=== PATIENT | male | born 1970 | race Caucasian/White ===

== ENCOUNTER 2023-09-13 09:46 | Outpatient (AMB) | payer OTHER, SELFPAY ==
--- NOTE | 2023-09-13 09:57 | A.SPINEOV_ITS ---
Intake Intake Visit Reasons: radiculopathy, lumbar region Intake Note: Mr. Ireland is here today c/o low back pain that radiates down left leg Assembly Worker Required: No Allergies No Known Allergies Allergy (Verified 09/13/23 09:58) Assessment & Plan Assessment & Plan (1) Back pain of lumbar region with sciatica: Code(s): M54.40 - Lumbago with sciatica, unspecified side Plan Dear Juan, Thank you for referring Mr Ireland to our office today. This is a very nice 52-year-old gentleman who presents to the office today for evaluation of 2 years of chronic low back pain going down his left leg into his lateral thigh, back of his leg as well as into his medial calf anteriorly. He also reports the symptoms will go down to his foot. He can not tell if it is the top of the bottom of his whole foot. The stent some start when he gets up in the morning and will progressively get worse this is a day goes on. He does have a claudicating element, but if he sits for too long his back pain will also get aggravated. He takes ibuprofen and oxycodone and this does seem to help. Tried physical therapy without any relief. He underwent an L5-S1 epidural at your office and that did give him about a week of some relief but not complete. He ultimately underwent bilateral L4 TFE any did have an excellent response to this with almost complete relief of his symptoms. Unfortunately the symptoms did return. He comes today to see us with an MRI showing degenerative disc disease and narrowing of the lateral recess at L3-4 and L4-5 as well as foraminal stenosis. PMH: He is morbidly obese, is a history of hypertension, anxiety, umbilical and inguinal hernia which may need surgery. History of obstructive sleep apnea, morbid obesity, rotator cuff tear, right knee arthroscopy twice. Denies any history of heart attack, stroke, lung issues, previous abdominal surgery, previous spine surgery, bleeding disorders, kidney issues. Social hx: He does not smoke, denies any drinking or recreational drug use Medications: Ibuprofen, amlodipine, oxycodone, sertraline, losartan Allergies: None Physical exam: He awake alert oriented no acute distress, very large abdomen central obesity, he has full strength of bilateral lower extremities with normal reflexes Imaging review: There is a lumbar MRI done at [facility], I do not have the images but only the report this suggests that there is some crowding of the lateral recess at L3-4 as well as L4-5, and bilateral neural foraminal narrowing at L4. Impression: 52-year-old gentleman presents to the office today for evaluation of 2 years of chronic and worsening low back pain radiating down his left leg into his thigh laterally, but also goes into his posterior thigh as well as some medial anterior tibial pain. The symptoms are aggravated with standing and walking and can get better if he sits down. However if he sits too long the back pain will become aggravated. He is trialed conservative treatment at this point in his very frustrated with his progress. It sounds like based on the MRI report that he has degenerative disc disease as well as foraminal narrowing possibly 2 levels. Unfortunately I was unable to access his images remotely from the computer so he is going to get me a copy of his disc and then I will call him to discuss the results. Thank you for allowing us to care for your patient. The total time spent with this visit with this patient was 45 minutes reviewing history, physical exam, lumbar MRI report review, and implementation of treatment plan or further diagnostic testing Kendall Mendez MD,PhD [facility] Coding Level of Care Code New Pt Level 4 (98093) Diagnoses Back pain of lumbar region with sciatica M54.40
== END 2023-09-13 10:18 | disposition home or self-care (01) ==
PROVIDERS: PCP Internal Medicine; Referring Provider Physician Assistant; Visit Provider Physician Assistant
DX: M54.40 Lumbago with sciatica, unspecified side (principal)
CPT/HCPCS: 99204

== ENCOUNTER → 2023-09-13 09:46 | Outpatient (BNVA) | payer OTHER, SELFPAY | PROVIDERS: PCP Internal Medicine; Visit Provider Physician Assistant | DX: M54.40 Lumbago with sciatica, unspecified side (principal) | CPT/HCPCS: 99202 ==

== ENCOUNTER 2024-08-04 11:06 | Outpatient (REF) | payer OTHER, SELFPAY ==
--- OUTSIDE RECORDS SUMMARY | 2024-08-04 14:34 | XMS_ITS | Clinical Summary ---
Author Organization [facility] Address [address] [place] [address] Care Team Providers Care Loader Semiconductor Dies Name Role Phone Unknown Primary Care Provider [phone] Allergies No known active allergies Social History [...] age to complete this topic Care Teams Loader Semiconductor Dies Relationship Specialty Start Date End Date Unknown Unknow Provider Address PCP - General 05/24/18
--- OUTSIDE RECORDS SUMMARY | 2024-08-04 14:34 | XMS_ITS | Encounter Summary ---
Author Organization [facility] Address [address] [place] [address] Care Team Providers Care Hand Sewer Shoes Name Role Phone Antony Hassan MD Primary Care Provider [phone] Reason for Visit * Reason Onset Date Comments Mo: Fax HERMES 07/31/2024 Encounter Details Date Type Department Care Team (Late st Contact Info) Description 07/31/2024 Telephone Internal Medicine - [place] [address] [facility] [address] [place] [phone] Antony Hassan MD [address] [facility] [address] [place] [address] [place] [address] Mo: Fax HERMES Social History Tobacco Use [...] of this encounter Progress Notes * Chin Edwrads MA - 08/03/2024 9:51 AM EST Last office notes and most recent labs faxed to [facility] as requested. * Madai Aponte - 07/31/2024 [...] AM EDT Office Visit General Surgery - [place] 175 [facility] [address] [place] [address] Morgan Chance, DO 175 [facility] [address] [place] [address] documented as of this encounter Visit Diagnoses Not on filedocumented in this encounter Care Teams Hand Sewer Shoes Relationship Specialty Start Date End Date Antony Hassan MD 175 [facility] [address] [place] [address] PCP - General 10/29/22 documented as of this encounter
--- OUTSIDE RECORDS SUMMARY | 2024-08-04 14:34 | XMS_ITS | Encounter Summary ---
Author Organization [facility], Address [address] [place] [address] Phone Care Team Providers Care Metalizing Machine Operator Name Role Phone Antony Hassan MD Primary Care Provider [phone] Encounter Details Date Type Department Care Team (Late st Contact Info) Description 10/04/2022 Documentation Only [facility], [address] [facility] [place] [address] Antony Hassan MD [address] [place] [address] Social History Tobacco Use Types Packs/Day Years [...] on filedocumented in this encounter Care Teams Metalizing Machine Operator Relationship Specialty Start Date End Date Antony Hassan MD 175 [facility] [address] [place] [address] PCP - General Internal Medicine 10/04/22 documented as of this encounter
--- OUTSIDE RECORDS SUMMARY | 2024-08-04 14:35 | XMS_ITS | Clinical Summary ---
Author Organization [facility], Address [address] [place] [address] [place] [address] Phone Care Team Providers Care Lean Process Deployment Consultant Name Role Phone Antony Hassan MD Primary Care Provider [phone] Active Problems Problem Noted Date Diagnosed Date [...] 2018 Influenza Vaccine (#1) 2024 03/28/2020 Insurance [facility] [employer] Care Teams Lean Process Deployment Consultant Relationship Specialty Start Date End Date Antony Hassan MD [address] [address] PCP - General Internal Medicine 10/04/22
--- OUTSIDE RECORDS SUMMARY | 2024-08-04 14:35 | XMS_ITS | Clinical Summary ---
Author Organization 175 [facility] Address [address] [place] [address] Phone Care Team Providers Care Vessel Liner Name Role Phone Antony Hassan MD Primary Care Provider [phone] Allergies No known active allergies Medications oxyCODONE [...] Team Description 07/31/2024 Telephone Internal Medicine - [address] [place] [address] Antony Hassan MD Joseph: Fax HERMES 07/16/2024 3:30 PM EST Office Visit Internal Medicine [address] [place] [phone] Antony Hassan MD Primary hypertension (Primary Dx); Screening for colon cancer; Anxiety 07/13/2024 Telephone Internal Medicine [address] [place] [address] Antony Hassan MD 07/08/2024 Telephone Internal [address] [address] Antony Hassan MD Form:Disability Placard 07/08/2024 [place] [facility] [address] [address] Antony Hassan MD Joseph:Refill from Last 3 Months Immunizations Name Administration Dates Next Due Pfizer SARS-CoV-2 COVID-19, mRNA, LNP-S, preservative free 05/20/2021 Surgical History Surgery Date Site/Laterality Comments SHOULDER ARTHROSCOPY 11/30/2021 Left PROCEDURE: CT SURGICAL ARTHROSCOPY SHOULDER W/LSS&RESCJ ADS; COMMENT: Patient underwent left rotator cuff repair with augmentation and labral debridement with Dr. Brennan OTHER SURGICAL HISTORY 07/25/2023 Right PROCEDURE: CT ARTHRS KNE SURG W/MENISCECTOMY MED/LAT W/SHVG; COMMENT: PMM, partial synovectomy HERNIA REPAIR PROCEDURE: CT REPAIR FIRST ABDOMINAL WALL HERNIA Medical History [...] AM EDT Office Visit General Surgery - [place] [address] [facility] [address] [place] [phone] Morgan Chance, [address] [place] [address] Health Maintenance Due Date Last Done Comments [...] Annual BMP Blood Test (12/31/2023) Pathologist [facility] Annual BMP Blood Test abstracted Historical Provider HEALTH MAINTENANCE Final Result * (ABNORMAL) Lipid panel (12/31/2023) [facility] LDL/HDL Ratio 3 0 - 4 Triglycerides 67 0 - 150 mg/dL Cholesterol 230(A) 0 - 200 mg/dL HDL 78 >=40 mg/dL LDL Cholesterol 139(A) 0 - 100 mg/dL Blood Venous blood specimen / Unknown us Historical Provider LAB BLOOD ORDERABLES Ofelia l Result * Depression Screening (12/06/2023) Pathologist [facility] Depression Screening abstracted Historical Provider HEALTH MAINTENANCE Final Result * COLONOSCOPY (04/06/2020 10:54 AM EDT) Anatomical Region Laterality Modality Endoscopy Jareth Gomez DO GI~PROCEDURE ORDERABLES Ofelia l Result from Last 3 Months or Most Recently Relevant to Health Maintenance Insurance [facility] MEDICARE MEDICAID - [place] Care Teams Vessel Liner Relationship Specialty Start Date End Date Antony Hassan MD [address] [place] [address] PCP - General 10/29/22
--- OUTSIDE RECORDS SUMMARY | 2024-08-04 14:35 | XMS_ITS | Clinical Summary ---
Author Organization [facility] Address [address] [place] [address] Care Team Providers Care Batch Heat Treat Operator Name Role Phone Alverto Astudillo MD Primary Care Provider [phone] Alverto Astudillo MD Unavailable [phone] Medications Escitalopram Oxalate (LEXAPRO) 10 MG tablet [...] age to complete this topic Care Teams Batch Heat Treat Operator Relationship Specialty Start Date End Date Alverto Astudillo MD [address] [place] [address] [address] [place] [address] PCP - General 01/14/23 Alverto Astudillo MD [address] [place] [address] [address] [place] [address] PCP - Backup PCP Internal Medicine 07/11/23
--- OUTSIDE RECORDS SUMMARY | 2024-08-04 14:35 | XMS_ITS | Encounter Summary ---
Author Organization [facility] Address [address] [place] [address] Care Team Providers Care Assessment Nurse Name Role Phone Antony Hassan MD Primary Care Provider [phone] Encounter Details Date Type Department Care Team (Late Contact Info) Description 07/13/2024 Telephone Internal Medicine - [place] 175 [facility] 200 [place] [phone] Antony Hassan MD 175 [facility] 200 [place] [address] Social History Tobacco Use Types Packs/Day Years [...] AM EDT Office Visit General Surgery - [place] 175 [facility] 110 [place] [phone] Morgan Chance, 175 [facility] 110 [place] [address] documented as of this encounter Visit Diagnoses Not on filedocumented in this encounter Care Teams Assessment Nurse Relationship Specialty Start Date End Date Antony Hassan MD [address] [address] PCP - General 10/29/22 documented as of this encounter
--- OUTSIDE RECORDS SUMMARY | 2024-08-04 14:35 | XMS_ITS | Encounter Summary ---
Author Organization [facility] Address [address] [place] [address] Care Team Providers Care Photoengraver Apprentice Name Role Phone Antony Hassan MD Primary Care Provider [phone] Reason for Referral * Consultation (Routine) - Authorized Specialty Diagnoses / Procedures Referred By Contridge t Referred To Contact Nephrology Diagnoses Screening for colon cancer Primary hypertension Anxiety Antony Hassan MD 175 [facility] 200 [place] [address] Phone: tel: fax: Bruce Alegre MD [address] [facility] 110 [place] [address] Phone: tel: fax: Referral ID Status Reason Start Date Expiration Date Visits Requested Visits Authorized [id number] Authorized Specialty Services Required 07/16/2024 07/16/2025 1 1 * Consultation (Routine) - Closed Specialty Diagnoses / Procedures Referred By Contac t Referred To Contact Gastroenterology Diagnoses Screening for colon cancer Primary hypertension Anxiety Antony Hassan MD 175 [facility] 200 [place] [address] Phone: tel: fax: Gastroenterology - [address] [facility] [address] [place] [address] Phone: tel: fax: Referral ID Status Reason Start Date Expiration Date V isits Requested Visits Authorized [id number] Closed Specialty Services Required 07/16/2024 07/16/2025 1 0 Reason for Visit * Reason Comments Follow-up Referral Encounter Details Date Type Department Care Team (Late st Contact Info) Description 07/16/2024 3:30 PM EST Office Visit Internal Medicine - [place] 175 [facility] [address] [place] [phone] Antony Hassan MD 175 [facility] [address] [place] [address] Primary hypertension (Primary Dx); Screening for colon [...] losartan and Bystolic for hypertension .refer to scientific associate. Also referred to GI for screening colonoscopy. documented in this encounter Plan of Treatment Upcoming Encounters Date Type Department Care Team (Late st Contact Info) Description 10/13/2024 8:30 AM EDT Office Visit General Surgery [facility] [address] [facility] [address] [facility] 110 [place] [address] Morgan Chance, [address] [facility] [address] [facility] 110 [place] [address] Scheduled Referrals Name Type Priority Associated Diagnoses [...] unspecified documented in this encounter Care Teams Photoengraver Apprentice Relationship Specialty Start Date End Date Antony aHssan MD 175 [facility] 200 [place] [address] PCP - General 10/29/22 documented as of this encounter
--- OUTSIDE RECORDS SUMMARY | 2024-08-04 14:35 | XMS_ITS | Clinical Summary ---
Author Organization [facility] Address [address] [place] [address] Care Team Providers Care Educational Guidance Counselor Name Role Phone Blair Baez MD Primary [...] age to complete this topic Care Teams Educational Guidance Counselor Relationship Specialty Start Date End Date Blair Baez MD PCP - General Family Medicine 09/03/17
--- OUTSIDE RECORDS SUMMARY | 2024-08-04 14:35 | XMS_ITS | Encounter Summary ---
Author Organization [facility] Address [address] [place] [address] Care Team Providers Care Bull Bucker Name Role Phone Antony Hassan MD Primary Care Provider [phone] Reason for Visit * Reason Onset Date Comments Form:Disability Placard 07/08/2024 Encounter Details Date Type Department Care Team (Late st Contact Info) Description 07/08/2024 Telephone Internal Medicine - [place] [address] [facility] [address] [place] [phone] Antony Hassan MD [address] [facility] [address] [place] [address] Form:Disability Placyossi Social History Tobacco Use Types [...] EST Mailed to Medical Affairs. [address] [address] [place] [address] * Yoko Aguilar MA - 07/16/2024 3:13 PM EST Placed in providers folder for signature. * Brissa Hart - 07/16/2024 2:44 PM EST PT Resubmitted Form Correctly Filled * Brissa Hart - 07/13/2024 1:23 PM EST PT notified that front of form needs to be filled out prior to doctors signature. PT was called and notified. Placed inside TV TECHNICIAN Box * Brissa Hart - 07/08/2024 11:44 AM EST Disabled Parking Max TV TECHNICIAN: [phone] Vehicle: Driven Only By PT Medical Condition: Limited Mobility Due To Right Knee Surgery documented in this encounter Plan of Treatment Upcoming Encounters Date Type Department Care Team (Late st Contact Info) Description 10/13/2024 8:30 AM EDT Office Visit General Surgery - [place] 175 [facility] 110 [place] [phone] Morgan Chance, [address] [facility] [address] [facility] 110 [place] [address] documented as of this encounter Visit Diagnoses Not on filedocumented in this encounter Care Teams Bull Bucker Relationship Specialty Start Date End Date Antony Hassan MD [address] [facility] [address] [place] [address] PCP - General 10/29/22 documented as of this encounter
--- OUTSIDE RECORDS SUMMARY | 2024-08-04 14:35 | XMS_ITS | Encounter Summary ---
Author Organization [facility] Address [address] [place] [address] Care Team Providers Care Milk Driver Name Role Phone Antony Hassan MD Primary Care Provider [phone] Reason for Visit * Reason Onset Date Comments Mo:Refill 07/08/2024 Encounter Details Date Type Department Care Team ([facility] st Contact Info) Description 07/08/2024 Telephone Internal Medicine - [place] [address] [facility] [address] [place] [phone] Antony Hassan MD [address] [facility] [address] [place] [address] Mo:Refill Social History Tobacco Use Types Packs/Day [...] AM EDT Office Visit General Surgery - [place] 175 [facility] 110 [place] [address] Morgan Chance DO 175 [facility] 110 [place] [address] documented as of this encounter Visit Diagnoses [...] documented as of this encounter Care Teams Milk Driver Relationship Specialty Start Date End Date Antony Hassan MD 175 [facility] 200 [place] [address] PCP - General 10/29/22 documented as of this encounter
[2024-08-04 18:32] LABS: Protein/Creatinine Ratio, Ur 0.23 (<0.2); Total Protein Urine Random 47 mg/dL (<12)
[2024-08-04 18:35] LABS: Anion Gap 13 (12-20); Blood Urea Nitrogen 10 mg/dL (9-16); Calcium 9.2 mg/dL (8.4-10.2); Carbon Dioxide 26 mmol/L (22-29); Chloride 101 mmol/L (96-108); Estimated Glomerular Filt Rate > 60; Potassium 3.2 mmol/L (3.3-5.1); Sodium 137 mmol/L (135-145)
[2024-08-04 18:45] LABS: TSH reflex Free T4 1.77 uIU/mL (0.32-4.0)
[2024-08-04 19:27] LABS: Cortisol Random 10.8 ug/dL
[2024-08-10 14:29] LABS: Aldosterone/Renin Ratio 2.8 Ratio (0.9-28.9); Plasma Renin Activity 4.96 ng/mL/h (0.25-5.82)
[2024-08-11 12:09] LABS: Renin 4.17 ng/mL/h (0.25-5.82)
== END 2024-08-04 11:07 | disposition home or self-care (01) ==
LOC: HO.HKASLDS 11:06
PROVIDERS: PCP Internal Medicine; Referring Provider Internal Medicine; Visit Provider Internal Medicine Nephrology
DX: I10 Essential (primary) hypertension (principal)
CPT/HCPCS: 36415; 80051; 82088; 82310; 82533; 82565; 82570; 84156; 84244; 84443; 84520

== ENCOUNTER 2024-08-04 11:06 | Outpatient (AMB) | payer OTHER, SELFPAY ==
--- NOTE | 2024-08-04 11:15 | HO.NEPHOV_ITS ---
Vital Signs 08/04/24 11:18 Height 5 ft 5 in Weight 220 lb 8 oz BMI 36.7 BP 196/110 H Blood Pressure Location Lt brachial Position Sitting Pulse 112 H Pulse Source Pulse Oximeter Pulse Oximetry (%) 96 Oxygen Delivery Method Room Air Intake Visit Reasons: ENP: HTN-Conf Abalone Fisherman Required: No Accompanied by: Self / Same As Patient Allergies No Known Allergies Allergy (Verified 09/13/23 09:58) HPI Comments Details: Thank you for referring this pleasant 53 year old gentleman for evaluation of uncontrolled hypertension on multiple anti hypertensive medications. He has gained some weight and is not compliant with low sodium diet. He has MAN and has a CPAP but struggle to be compliant with it. He denies any LVH, proteinuria, retinopathy, renal dysfunction, hypokalemia, uncontrolled thyroid disorders, palpitations, CAD, CVA, CHF, carotid stenosis, PAD or STEFANIE. He takes NSAID's and claims to be compliant with his current medications. He has not taken his medications today . He denies headache, visual disturbance , weakness, chest pain, SOB or dizziness. He has no H/O drug use. He had no specific complaints at the time of this visit [facility] Medical History (Updated 08/04/24 @ 13:19 by Bruce Alegre MD) DDD (degenerative disc disease), lumbar Cervical spondylosis Hypertension Surgical History (Updated 08/04/24 @ 11:23 by Cindy Jj MA) H/O hernia repair H/O right knee surgery S/P rotator cuff repair Family History (Updated 08/04/24 @ 11:17 by Cindy Jj MA) Mother Hypertension Heart disease Father Hypertension Throat cancer Social History (Updated 08/04/24 @ 11:16 by Cindy Jj MA) Alcohol intake: current Comment: Socially Patient Tobacco Use Status: Never used Tobacco Review of Systems Const All systems reviewed & are unremarkable except as noted in HPI and below Physical Exam Vital Signs: Last Vital Signs Pulse 112 H 08/04/24 11:18 BP 196/110 H 08/04/24 11:18 Pulse Ox 96 08/04/24 11:18 Oxygen Delivery Method Room Air 08/04/24 11:18 BMI result Body Mass Index 36.7 Const General: comfortable and no acute distress Orientation/consciousness: patient oriented x3 HEENT Head: Yes normocephalic Mouth: Normal oral and palatal mucosa present Eyes EOM: EOMs intact bilaterally Neck Neck: Yes supple Resp Auscultation: clear to auscultation bilaterally Cardio Jugular venous distension: no JVD Rate: regular rate GI Palpation (GI): Soft to palpation Auscultation: normal bowel sounds General: Yes no CVA tenderness Back/Spine/Pelvis Back: no CVA tenderness Skin General skin exam: no rashes or lesions noted Neuro General: patient oriented x3 and moves all extremities Extrem General: Yes no pedal edema Results Reviewed Nephrology Results: No Data to Display Assessment & Plan Assessment & Plan (1) Hypertension: Code(s): I10 - Essential (primary) hypertension Category: Medical Qualifiers: Hypertension type: primary hypertension Qualified Code(s): I10 - Essential (primary) hypertension Plan Low sodium diet; Weight loss Needs to be compliant with CPAP Work up ordered including imaging Increased Amlodipine to 10 mg daily Avoid/Minimize NSAID's Good hydration; 24 hour BPM ordered Further management is pending data Time spent reviewing data/ecounter/documentation 49 mts Answered all questions; F/U given Orders: Orders Blood Urea Nitrogen Today I10 - Essential (primary) hypertension Electrolytes Today I10 - Essential (primary) hypertension Calcium Today I10 - Essential (primary) hypertension US renal doppler 2 Weeks I10 - Essential (primary) hypertension US renal BI 2 Weeks I10 - Essential (primary) hypertension Cortisol Random Today I10 - Essential (primary) hypertension Metanephrines, Plasma Today I10 - Essential (primary) hypertension Creatinine Today I10 - Essential (primary) hypertension Protein Creatinine Ratio, Ur Today I10 - Essential (primary) hypertension TSH reflex Free T4 Today I10 - Essential (primary) hypertension Aldosterone Today I10 - Essential (primary) hypertension Renin Today I10 - Essential (primary) hypertension Aldost/Renin Today I10 - Essential (primary) hypertension AMB 24 HR B/P Monitor PLACEMENT 2 Weeks I10 - Essential (primary) hypertension Coding Level of Care Code New Pt Level 5 (31757) Diagnoses Primary hypertension I10 Hypertension type: primary hypertension
[2024-08-04 11:18] VITALS: BP 196/110; PULSE 112; O2SAT 96; BMI 36.7
--- OUTSIDE RECORDS SUMMARY | 2024-08-04 13:31 | XMS_ITS | Encounter Summary ---
Author Organization [facility], Address [address] [place] [address] Phone Care Team Providers Care Outside Contractor Sales Name Role Phone Antony Hassan MD Primary Care Provider [phone] Encounter Details Date Type Department Care Team (Late st Contact Info) Description 10/04/2022 Documentation Only [facility], [address] [facility] [place] [address] Antony Hassan MD [address] [place] [id number] Social History Tobacco Use Types Packs/Day Years Used Date Smoking Tobacco: Never Assessed Sex and Gender Information Value Date Recorded Sex Assigned at Not on file Legal Sex Male 12:01 PM EDT Gender Identity Not on file Sexual Orientation Not on file documented as of this encounter Plan of Treatment Not on file documented as of this encounter Visit Diagnoses Not on filedocumented in this encounter Care Teams Outside Contractor Sales Relationship Specialty Start Date End Date Antony Hassan MD [address] [facility] [address] [place] [address] PCP - General Internal Medicine 10/04/22 documented as of this encounter
--- OUTSIDE RECORDS SUMMARY | 2024-08-04 13:31 | XMS_ITS | Encounter Summary ---
Author Organization [facility] Address [address] [place] [address] Care Team Providers Care Trainer Name Role Phone Antony Hassan MD Primary Care Provider [phone] Reason for Visit * Reason Onset Date Comments Form:Disability Placard 07/08/2024 Encounter Details Date Type Department Care Team (Late st Contact Info) Description 07/08/2024 Telephone Internal Medicine - [place] [address] [place] [phone] Antony Hassan MD [address] [place] [address] Form:Disability Placyossi Social History Tobacco Use Types Packs/Day Years Used Date Smoking Tobacco: Never Smokeless Tobacco: Never Alcohol Use Standard Drinks/Week Comments Yes 0 (1 standard drink = 0.6 oz pur e alcohol) Sex and Gender Information Value Date Recorded Sex Assigned at Not on file Legal Sex Male 5:08 AM EST Gender Identity Not on file Sexual Orientation Not on file documented as of this encounter Progress Notes * Yoko Aguilar MA - 07/22/2024 10:58 AM EST Mailed to [facility]. [address] [address] [place] [address] * Yoko Aguilar MA - 07/16/2024 3:13 PM EST Placed in providers folder for signature. * Brissa Hart - 07/16/2024 2:44 PM EST PT Resubmitted Form Correctly Filled * Brissa Hart - 07/13/2024 1:23 PM EST PT notified that front of form needs to be filled out prior to doctors signature. PT was called and notified. Placed inside TEST EXAMINER Box * Brissa Hart - 07/08/2024 11:44 AM EST Disabled Parking Max TEST EXAMINER: [phone] Vehicle: Driven Only By PT Medical Condition: Limited Mobility Due To Right Knee Surgery documented in this encounter Plan of Treatment Upcoming Encounters Date Type Department Care Team (Late st Contact Info) Description 10/13/2024 8:30 AM EDT Office Visit General Surgery - [place] [address] [facility] [address] [place] [phone] Morgan Chance, [address] [facility] [address] [place] [address] documented as of this encounter Visit Diagnoses Not on filedocumented in this encounter Care Teams Trainer Relationship Specialty Start Date End Date Antony Hassan MD [address] [place] [address] PCP - General 10/29/22 documented as of this encounter
--- OUTSIDE RECORDS SUMMARY | 2024-08-04 13:31 | XMS_ITS | Clinical Summary ---
Author Organization 175 [facility] Address [address] [place] [address] Phone Care Team Providers Care Environmental Inspector Name Role Phone Antony Hassan MD Primary Care Provider [phone] Allergies No known active allergies Medications oxyCODONE (ROXICODONE) 5 mg immediate release tablet Take 1 Tablet by mouth every 6 hours as needed for Pain. Active sertraline (ZOLOFT) 50 mg tablet Take 1 tablet (50 mg total) by mouth 1 (one) time each day. 4 Active oxyCODONE (ROXICODONE) 5 mg immediate release tablet Take 1 Tablet by mouth every 4 hours as needed. 4 Active CASANTHRANOL-DO CUSATE SODIUM ORAL Take by mouth. Active naproxen (NAPROSYN) 500 mg tablet Take 1 Tablet by mouth 2 times daily (with meals). Active amLODIPine (NORVASC) 5 mg tablet Take 1 tablet (5 mg total) by mouth 1 (one) time each day. 90 tablet 1 5 Active nebivoloL (BYSTOLIC) 5 mg tablet Take 1 tablet (5 mg total) by mouth 1 (one) time each day. 90 tablet 1 5 Active losartan (COZAAR) 100 mg tablet Take 1 tablet (100 mg total) by mouth 1 (one) time each day. 90 tablet 1 5 Active nebivoloL (BYSTOLIC) 5 mg tablet Take 1 tablet (5 mg total) by mouth 1 (one) time each day. 4 07/08/19 25 Discontinu ed(Reorder ) losartan (COZAAR) 100 mg tablet Take 1 tablet (100 mg total) by mouth 1 (one) time each day. 4 07/08/19 25 Discontinu ed(Reorder ) amLODIPine (NORVASC) 5 mg tablet TAKE 1 TABLET BY MOUTH EVERY DAY FOR 180 DAYS 3 07/08/19 25 Discontinu ed(Reorder ) Active Problems Problem Noted Date Diagnosed Date Cervical spondylosis 04/11/2023 Overview (03/19/2024): Last Assessment & Plan: While patient was here to discuss his low back pain, he mentioned his chronic neck, left shoulder and arm pain. Sees Ortho for left shoulder issues, I reviewed his C-spine MRI which showed mild C6-7 spondylosis, no significant findings, no stenosis, cord compression or signal change in the spinal cord. He plans to follow-up with Ortho, may be getting a shoulder MRI, is interested in trying acupuncture for his neck and low back pain, hopefully this helps him. A couple names provided. I asked him to call with any concerns or questions, worsening neck symptoms. DDD (degenerative disc disease), lumbar 04/11/20 Overview (03/19/2024): Last Assessment & Plan: Patient describes chronic low back pain, left >right anterior thigh, knee, mcclain pain, worse over the last 6 months. His lumbar spine MRI was reviewed with Dr. Amezquita, he has multilevel degenerative changes including multilevel DDD, worse at L4-5, without significant neuroforaminal narrowing. No central stenosis noted. Dr. Amezquita is not recommending any neurosurgical intervention at this time. Patient has already tried L5-S1 KEREN which helped for about 5 days, is not interested in trying bilateral L4 TFE's, which was recommended in physiatry. Patient feels physical therapy was not helpful, after his most recent/last session he had increased pain. We talked about another conservative treatment option like acupuncture, which he is interested in, a couple names provided. He can follow-up after the acupuncture, call with any questions or concerns, all questions answered on today's visit. Encounters Date Type Department Care Team Description 07/31/2024 Telephone Internal Medicine - [address] [place] [address] Antony Hassan MD Joseph: Fax HERMES 07/16/2024 3:30 PM EST Office Visit Internal Medicine [address] [place] [phone] Antony Hassan MD Primary hypertension (Primary Dx); Screening for colon cancer; Anxiety 07/13/2024 Telephone Internal Medicine [address] [place] [address] Antony Hassan MD 07/08/2024 Telephone Internal [address] [address] Antony Hassan MD Form:Disability Placard 07/08/2024 [facility] [address] [address] Antony Hassan MD Joseph:Refill from Last 3 Months Immunizations Name Administration Dates Next Due Pfizer SARS-CoV-2 COVID-19, mRNA, LNP-S, preservative free 05/20/2021 Surgical History Surgery Date Site/Laterality Comments SHOULDER ARTHROSCOPY 11/30/2021 Left PROCEDURE: [place] SURGICAL ARTHROSCOPY SHOULDER W/LSS&RESCJ ADS; COMMENT: Patient underwent left rotator cuff repair with augmentation and labral debridement with Dr. Brennan OTHER SURGICAL HISTORY 07/25/2023 Right PROCEDURE: [place] ARTHRS KNE SURG W/MENISCECTOMY MED/LAT W/SHVG; COMMENT: PMM, partial synovectomy HERNIA REPAIR PROCEDURE: [place] REPAIR FIRST ABDOMINAL WALL HERNIA Medical History Medical History Date Comments Essential (primary) hypertension DX:Essential (primary) hypertension Social History Tobacco Use Types Packs/Day Years Used Date Smoking Tobacco: Never Smokeless Tobacco: Never Alcohol Use Standard Drinks/Week Comments Yes 0 (1 standard drink = 0.6 oz pur e alcohol) Sex and Gender Information Value Date Recorded Sex Assigned at Not on file Legal Sex Male 5:08 AM EST Gender Identity Not on file Sexual Orientation Not on file Obstetrics History Last Filed Vital Signs Vital Sign Reading Time Taken Comments Blood Pressure 160/100 07/16/2024 3:05 PM EST Pulse 101 07/16/2024 3:05 PM EST Temperature 36.8 ??C (98.3 ??F) 07/16/2024 3:05 PM ES T Respiratory Rate - - Oxygen Saturation 97% 07/16/2024 3:05 PM EST Inhaled Oxygen Concentration - - Weight 99 kg (218 lb 3.2 oz) 07/16/2024 3:05 PM EST Height 165.1 cm (5' 5 ) 04/14/2024 8:52 AM EST Body Mass Index 36.31 04/14/2024 8:52 AM EST Plan of Treatment Upcoming Encounters Date Type Department Care Team (Late st Contact Info) Description 10/13/2024 8:30 AM EDT Office Visit General Surgery - [place] [address] [place] [phone] Morgan Chance, [address] [place] [address] Health Maintenance Due Date Last Done Comments Hepatitis B Vaccines (1 of 3 - 19+ 3-dose series) 1988 Pneumococcal Vaccine: 50+ Years (1 of 1 - PCV) 10/13/2019 HIV Screening 05/16/2022 Hepatitis C Screening 05/16/2022 Medicare Annual Wellness Visit 05/16/2022 Social Influencers of Health Screening 05/16/2022 COVID-19 Vaccine ( season) 2024 05/20/2021, 10/03/2020, 09/10/2020 Influenza Vaccine (#1) 2024 03/28/2020 Depression Screening 12/05/2024 12/06/2023 Hypertension/CHF/CAD Annual BMP Blood Test 12/30/2024 12/31/2023, 12/31/2023, 01/19/2020, Additional history exists DTaP,Tdap,and Td Vaccines (2 - Td or Tdap) 09/04/2027 09/03/2017 Cholesterol Screening (Lipid Panel) 12/30/2028 12/31/2023, 12/31/2023, 01/19/2020, Additional history exists Colorectal Cancer Screening: Colonoscopy 04/06/2030 04/06/2020 Zoster Vaccines Completed 03/28/2020, 01/27/2020 HIB Vaccines Aged Out No longer eligi ble based on patient's age to complete this topic HPV Vaccines Aged Out No longer eligi ble based on patient's age to complete this topic Hepatitis A Vaccines Aged Out No long er eligible based on patient's age to complete this topic IPV Vaccines Aged Out No longer eligi ble based on patient's age to complete this topic MMR Vaccines Aged Out No longer eligi ble based on patient's age to complete this topic Meningococcal ACWY Vaccine Aged Out N o longer eligible based on patient's age to complete this topic Meningococcal B Vacine Aged Out No lo nger eligible based on patient's age to complete this topic Pneumococcal Vaccine: Pediatrics (0 to 5 Years) and At-Risk Patients (6 to 64 Years) Aged Out No longer eligible based on patient's age to complete this topic RSV Immunization Patients Under 20 months Aged Out No longer eligible based on patient's age to complete this topic Varicella Vaccines Aged Out No longer eligible based on patient's age to complete this topic Procedures Procedure Name Priority Date/Time Associated Diagnosis Comments ANNUAL BMP BLOOD TEST Routine 12/31/2023 LIPID PANEL Routine 12/31/2023 DEPRESSION SCREENING Routine 12/06/2023 COLONOSCOPY Routine 04/06/2020 10:54 AM EDT from Last 3 Months or Most Recently Relevant to Health Maintenance Results * Annual BMP Blood Test (12/31/2023) Pathologist [facility] Annual BMP Blood Test abstracted Historical Provider HEALTH MAINTENANCE Final Result * (ABNORMAL) Lipid panel (12/31/2023) [facility] LDL/HDL Ratio 3 0 - 4 Triglycerides 67 0 - 150 mg/dL Cholesterol 230(A) 0 - 200 mg/dL HDL 78 >=40 mg/dL LDL Cholesterol 139(A) 0 - 100 mg/dL Blood Venous blood specimen / Unknown us Historical Provider LAB BLOOD ORDERABLES Ofelia l Result * Depression Screening (12/06/2023) Pathologist [facility] Depression Screening abstracted Historical Provider HEALTH MAINTENANCE Final Result * COLONOSCOPY (04/06/2020 10:54 AM EDT) Anatomical Region Laterality Modality Endoscopy Jareth Gomez DO GI~PROCEDURE ORDERABLES Ofelia l Result from Last 3 Months or Most Recently Relevant to Health Maintenance Insurance [facility] MEDICARE MEDICAID - [place] Care Teams Environmental Inspector Relationship Specialty Start Date End Date Antony Hassan MD [address] [place] [address] PCP - General 10/29/22
--- OUTSIDE RECORDS SUMMARY | 2024-08-04 13:31 | XMS_ITS | Encounter Summary ---
Author Organization [facility] Address [address] [place] [address] Care Team Providers Care Software Test Manager Name Role Phone Antony Hassan MD Primary Care Provider [phone] Reason for Visit * Reason Onset Date Comments Mo:Refill 07/08/2024 Encounter Details Date Type Department Care Team ([facility] st Contact Info) Description 07/08/2024 Telephone Internal Medicine - [place] [address] [place] [phone] Antony Hassan MD [address] [facility] [address] [place] [address] Mo:Refill Social History Tobacco Use Types Packs/Day Years [...] on file documented as of this encounter Ordered Prescriptions Prescription Sig Dispense Quantity Refills Last Filled Start Date End Date losartan (COZAAR) 100 mg tablet Take 1 tablet (100 mg total) by mouth 1 (one) time each day. 90 tablet 1 07/08/2024 nebivoloL (BYSTOLIC) 5 mg tablet Take 1 tablet (5 mg total) by mouth 1 (one) time each day. 90 tablet 1 07/08/2024 amLODIPine (NORVASC) 5 mg tablet Take 1 tablet (5 mg total) by mouth 1 (one) time each day. 90 tablet 1 07/08/2024 documented in this encounter Progress Notes * Brissa Hart - 07/08/2024 9:30 AM EST Potassium 100 MG documented in this encounter Plan of Treatment Upcoming Encounters Date Type Department Care Team (Late st Contact Info) Description 10/13/2024 8:30 AM EDT Office Visit General Surgery - [place] [address] [facility] [address] [place] [address] Morgan Chance DO [address] [facility] [address] [place] [address] documented as of this encounter Visit Diagnoses Not on filedocumented in this encounter Discontinued Medications Medication Sig Discontinue Reason Start Date End Da te nebivoloL (BYSTOLIC) 5 mg tablet Take 1 tablet (5 mg total) by mouth 1 (one) time each day. Reorder 12/18/2023 07/08/2024 losartan (COZAAR) 100 mg tablet Take 1 tablet (100 mg total) by mouth 1 (one) time each day. Reorder 10/08/2023 07/08/2024 amLODIPine (NORVASC) 5 mg tablet TAKE 1 TABLET BY MOUTH EVERY DAY FOR 180 DAYS Reorder 03/27/2023 07/08/2024 documented as of this encounter Care Teams Software Test Manager Relationship Specialty Start Date End Date Antony Hassan MD [address] [facility] [address] [place] [address] PCP - General 10/29/22 documented as of this encounter
--- OUTSIDE RECORDS SUMMARY | 2024-08-04 13:31 | XMS_ITS | Clinical Summary ---
Author Organization [facility] Address [address] [place] [address] Care Team Providers Care Interventional Nurse Name Role Phone Alverto Astudillo MD Primary Care Provider [phone] Alverto Astudillo MD Unavailable [phone] Medications Escitalopram Oxalate (LEXAPRO) 10 MG tablet 0 01/16/2019 Active Omeprazole (PriLOSEC) [address] capsule 0 01/16/2019 Active Active Problems Problem Noted Date Diagnosed Date Swelling of both parotid glands 01/16/2019 Social History Tobacco Use Types Packs/Day Years Used Date Smoking Tobacco: Never Assessed Sex and Gender Information Value Date Recorded Sex Assigned at Not on file Legal Sex Male 6:46 PM EDT Gender Identity Not on file Sexual Orientation Not on file Last Filed Vital Signs Vital Sign Reading Time Taken Comments Blood Pressure 141/94 01/16/2019 9:15 AM EDT Pulse 81 01/16/2019 9:15 AM EDT Temperature - - Respiratory Rate - - Oxygen Saturation - - Inhaled Oxygen Concentration - - Weight - - Height - - Body Mass Index - - Plan of Treatment Health Maintenance Due Date Last Done Comments Hepatitis C Screening 1969 DTaP/Tdap/Td (1 - Tdap) 10/13/1987 Hep B (1 of 3 - 19+ 3-dose series) 1988 Pneumococcal 50+ years (1 of 1 - PCV) 10/13/2019 Zoster (Shingrix) (1 of 2) 10/13/2019 COVID-19 Vaccine ( - 2023-2 5 season) 2024 Influenza (#1) 2024 HPV Vaccine Aged Out No longer eligi ble based on patient's age to complete this topic Hep A Aged Out No longer eligi ble based on patient's age to complete this topic Hib Aged Out No longer eligi ble based on patient's age to complete this topic Meningococcal ACWY Aged Out No longer eligible based on patient's age to complete this topic Care Teams Interventional Nurse Relationship Specialty Start Date End Date Alverto Astudillo MD [address] [place] [address] [address] [place] [address] PCP - General 01/14/23 Alverto Astudillo MD [address] [place] [address] [address] [place] [address] PCP - Backup PCP Internal Medicine 07/11/23
--- OUTSIDE RECORDS SUMMARY | 2024-08-04 13:31 | XMS_ITS | Clinical Summary ---
Author Organization [facility], Address [address] [place] [address] [place] [address] Phone Care Team Providers Care Coating Technician Name Role Phone Antony Hassan MD Primary Care Provider [phone] Active Problems Problem Noted Date Diagnosed Date Hypo-osmolality and hyponatremia 11/16/2022 Social History Tobacco Use Types Packs/Day Years Used Date Smoking Tobacco: Never Assessed Sex and Gender Information Value Date Recorded Sex Assigned at Not on file Legal Sex Male 12:01 PM EDT Gender Identity Not on file Sexual Orientation Not on file Last Filed Vital Signs Vital Sign Reading Time Taken Comments Blood Pressure 148/84 11/16/2022 1:19 PM EDT Pulse - - Temperature - - Respiratory Rate - - Oxygen Saturation - - Inhaled Oxygen Concentration - - Weight - - Height - - Body Mass Index - - Plan of Treatment Health Maintenance Due Date Last Done Comments Pneumococcal Vaccine: Pediat rics (0 to 5 Years) and At-Risk Patients (6 to 64 Years) (1 of 2 - PCV) 10/13/1975 Hepatitis B Vaccine (1 of 3 - 19+ 3-dose series) 10/12 Colorectal Cancer Screening: Annual FOBT 2018 Colorectal Cancer Screening: Colonoscopy 2018 Colorectal Cancer Screening: Sigmoidoscopy 2018 Influenza Vaccine (#1) 2024 03/28/2020 Insurance [facility] Care Teams Coating Technician Relationship Specialty Start Date End Date Antony Hassan MD [address] [address] PCP - General Internal Medicine 10/04/22
--- OUTSIDE RECORDS SUMMARY | 2024-08-04 13:31 | XMS_ITS | Clinical Summary ---
Author Organization [facility] Address [address] [place] [address] Care Team Providers Care Director Search Marketing Strategies Name Role Phone Blair Baez MD Primary Care Provider Allergies No known active allergies Medications Medication Sig Dispensed Refills Start Date End Date Status dexlansoprazole (DEXILANT) 60 MG capsuleIndications:Es ophagitis Take one capsule (60 mg) 30 minutes AC main meal of day 30 capsule 6 04/06/2020 Active fluticasone (FLONASE) 50 MCG/ACT nasal sprayIndications:Non- seasonal allergic rhinitis, unspecified trigger spray/apply 1 spray in each nostril daily. 48 g 3 04/14/2021 Active montelukast (SINGULAIR) 10 MG tabletIndications:Non -seasonal allergic rhinitis, unspecified trigger Take 1 tablet (10 mg total) by mouth every night at bedtime. 90 tablet 3 04/14/2021 Active Active Problems Problem Noted Date Diagnosed Date Essential hypertension 03/02/2020 Pre-diabetes 01/26/2020 Hyperlipidemia 01/26/2020 Family history of heart disease 01/26/2020 Arthritis of lumbar spine 01/20/2019 Overview: Disc space narrowing as well 01/2019 xray GERD without esophagitis 01/02/2019 Non-seasonal allergic rhinitis 01/02/2019 History of suicide attempt 12/18/2018 Moderate episode of recurrent major depressive d isorder 12/18/2018 Enlarged parotid gland 12/18/2018 Class 2 obesity due to exces s calories without serious comorbidity with body mass index (BMI) of 35.0 to 35.9 in adult 09/03/2017 Obstructive sleep apnea 11/16/2014 Resolved Problems Problem Noted Date Diagnosed Date Resolved Date Elevated BP without diagnosis of hypertension 09/04/19 18 12/18/2018 Blood pressure elevated with out history of HTN 11/16/2014 09/10/2017 Immunizations Name Administration Dates Next Due Influenza Quad (Flucelvax) 0.5mL >6mon (ccIIV4) 03/28/2020 Shingrix Vaccine (Zoster Recombinant) 03/28/2020 ,01/27/2020 Tdap 09/03/2017 Family History Medical History Relation Name Comments Throat cancer Father Heart failure Mother Hyperlipidemia Mother Hypertension Mother Breast cancer Sister Colon cancer Neg Hx Colon polyps Neg Hx Relation Name Status Comments Father Mother Sister Alive Social History Tobacco Use Types Packs/Day Years Used Date Smoking Tobacco: Never Smokeless Tobacco: Never Tobacco Cessation:Counseling Given: Yes Alcohol Use Standard Drinks/Week Comments Yes 18 (1 standard drink = 0.6 oz pu re alcohol) weekends Sex and Gender Information Value Date Recorded Sex Assigned at Not on file Gender Identity Not on file Sexual Orientation Not on file Job Start Date Occupation Industry Not on file Not on file Not on file Last Filed Vital Signs Vital Sign Reading Time Taken Comments Blood Pressure 170/110 03/17/2021 3:45 PM EDT Pulse 107 03/17/2021 3:45 PM EDT Temperature 36.2 ??C (97.2 ??F) 02/22/2021 11:33 AM E DT Respiratory Rate 20 03/17/2021 3:45 PM EDT Oxygen Saturation 97% 03/17/2021 3:45 PM EDT Inhaled Oxygen Concentration - - Weight 97.1 kg (214 lb) 03/17/2021 3:45 PM EDT Height 165.1 cm (5' 5 ) 03/17/2021 3:45 PM EDT Body Mass Index 35.61 03/17/2021 3:45 PM EDT Plan of Treatment Health Maintenance Due Date Last Done Comments Hepatitis B Vaccines (1 of 3 - 3-dose series) 1969 COVID-19 Vaccine (#1) 04/14/1970 Pneumococcal Vaccine (1 of 2 - PCV) 10/13/1975 Colon Cancer Screening (Colonoscopy) 2014 BMI Counseling 12/19/2019 12/18/2018 Depression Screening 01/26/2021 01/27/2020, 12/18/2018, 12/18/2018, Additional history exists Preventative Health Evaluation 01/26/2021 01/27/2020, 12/18/2018, 12/18/2018, Additional history exists Influenza Vaccine (#1) 2024 03/28/2020 DTap / Tdap / Td (2 - Td or Tdap) 09/04/2027 09/03/2017 Hepatitis C Screening Completed 01/19/2020, 018 Shingrix-Zoster Vaccine Completed 03/28/2020, 01/26 RSV Ped < 20 months Aged Out No longe r eligible based on patient's age to complete this topic Care Teams Director Search Marketing Strategies Relationship Specialty Start Date End Date Blair Baez MD PCP - General Family Medicine 09/03/17
--- OUTSIDE RECORDS SUMMARY | 2024-08-04 13:31 | XMS_ITS | Encounter Summary ---
Author Organization [facility] Address [address] [place] [address] Care Team Providers Care Edge Stainer Name Role Phone Antony Hassan MD Primary Care Provider [phone] Reason for Referral * Consultation (Routine) - Authorized Specialty Diagnoses / Procedures Referred By Contridge t Referred To Contact Nephrology Diagnoses Screening for colon cancer Primary hypertension Anxiety Antony Hassan MD 175 [facility] [address] [place] [address] Phone: tel: fax: Bruce Alegre MD [address] [facility] [address] [place] [address] Phone: tel: fax: Referral ID Status Reason Start Date Expiration Date Visits Requested Visits Authorized [id number] Authorized Specialty Services Required 07/16/2024 07/16/2025 1 1 * Consultation (Routine) - Closed Specialty Diagnoses / Procedures Referred By Contac t Referred To Contact Gastroenterology Diagnoses Screening for colon cancer Primary hypertension Anxiety Antony Hassan MD 175 [facility] [address] [place] [address] Phone: tel: fax: Gastroenterology - [address] [facility] [address] [place] [address] Phone: tel: fax: Referral ID Status Reason Start Date Expiration Date V isits Requested Visits Authorized [id number] Closed Specialty Services Required 07/16/2024 07/16/2025 1 0 Reason for Visit * Reason Comments Follow-up Referral Encounter Details Date Type Department Care Team (Late st Contact Info) Description 07/16/2024 3:30 PM EST Office Visit Internal Medicine - [place] [address] [facility] [address] [place] [phone] Antony Hassan MD 175 [facility] [place] [address] [place] [address] Primary hypertension (Primary Dx); Screening for colon cancer; Anxiety Social History Tobacco Use Types Packs/Day Years [...] on file documented as of this encounter Last Filed Vital Signs Vital Sign Reading Time Taken Comments Blood Pressure 160/100 07/16/2024 3:05 PM EST Pulse 101 07/16/2024 3:05 PM EST Temperature 36.8 ??C (98.3 ??F) 07/16/2024 3:05 PM ES T Respiratory Rate - - Oxygen Saturation 97% 07/16/2024 3:05 PM EST Inhaled Oxygen Concentration - - Weight 99 kg (218 lb 3.2 oz) 07/16/2024 3:05 PM EST Height - - Body Mass Index 36.31 04/14/2024 8:52 AM EST documented in this encounter Progress Notes * Antony Hassan MD - 07/16/2024 3:30 PM EST COMPLAINT medication review and testing IDENTIFIER: Alphonso Ireland is a 53 y.o. old male. HPI: Hypertension is still not controlled on 3 medications. Anxiety stable on Zoloft. ROS: GENERAL: No malaise, significant weight loss or fever RESPIRATORY: No cough, wheezing or shortness of breath CARDIOVASCULAR: No chest pain, leg swelling or palpitations GI: No abdominal discomfort, blood in stools or black stools PAST MEDICAL HISTORY: Patient Active Problem List Diagnosis Date Noted Cervical spondylosis 04/11/2023 DDD (degenerative disc disease), lumbar 04/11/2023 Past Surgical History: Procedure Laterality Date HERNIA REPAIR PROCEDURE: SD REPAIR FIRST ABDOMINAL WALL HERNIA OTHER SURGICAL HISTORY Right 07/25/2023 PROCEDURE: SD ARTHRS KNE SURG W/MENISCECTOMY MED/LAT W/SHVG; COMMENT: PMM, partial synovectomy SHOULDER ARTHROSCOPY Left 11/30/2021 PROCEDURE: SD SURGICAL ARTHROSCOPY SHOULDER W/LSS&RESCJ ADS; COMMENT: Patient underwent left rotator cuff repair with augmentation and labral debridement with Dr. Brennan SOCIAL HISTORY: Social History Tobacco Use Smoking status: Never Smokeless tobacco: Never Substance Use Topics Alcohol use: Yes FAMILY HISTORY: No family history on file. MEDICATIONS DISCONTINUED/REORDERED: There are no discontinued medications. ACTIVE MEDICATIONS: Outpatient Medications Marked as Taking for the 07/16/24 encounter (Office Visit) with Antony Hassan MD Medication Sig Dispense Refill amLODIPine (NORVASC) 5 mg tablet Take 1 tablet (5 mg total) by mouth 1 (one) time each day. 90 tablet 1 CASANTHRANOL-DOCUSATE SODIUM ORAL Take by mouth. losartan (COZAAR) 100 mg tablet Take 1 tablet (100 mg total) by mouth 1 (one) time each day. 90 tablet 1 naproxen (NAPROSYN) 500 mg tablet Take 1 Tablet by mouth 2 times daily (with meals). nebivoloL (BYSTOLIC) 5 mg tablet Take 1 tablet (5 mg total) by mouth 1 (one) time each day. 90 tablet 1 sertraline (ZOLOFT) 50 mg tablet Take 1 tablet (50 mg total) by mouth 1 (one) time each day. ALLERGIES: No Known Allergies PHYSICAL EXAM: Vitals: 07/16/24 1505 BP: (!) 160/100 Pulse: 101 Temp: 36.8 ??C (98.3 ??F) SpO2: 97% APPEARANCE: Alert and in no acute distress EARS: External ears normal. HEART: RRR with normal S1 and S2, no murmurs LUNG: clear to auscultation LABS: No results found for: WBC , HGB , HCT , MCV No results found for: NA , K , CO2 , CL , BUN , GLU , ALB , ALKPHOS , TP No results found for: TSH Lab Results Component Value Date CHOL 230 (A) 12/31/2023 LDL 139 (A) 12/31/2023 HDL 78 12/31/2023 TRIG 67 12/31/2023 No components found for: URINELEUK , URINENITR , URINEPRO , URINEPH , URINEBLD , URINESG , URINEKET , URINEBILI , URINEGLUC IMAGING: IMPRESSION: 1. Primary hypertension Ambulatory referral to Gastroenterology Ambulatory referral to Nephrology 2. Screening for colon cancer Ambulatory referral to Gastroenterology Ambulatory referral to Nephrology 3. Anxiety Ambulatory referral to Gastroenterology Ambulatory referral to Nephrology PLAN: Anxiety continue Zoloft. Currently on amlodipine, losartan and Bystolic for hypertension .refer to canvas goods fabricator. Also referred to GI for screening colonoscopy. documented in this encounter Plan of Treatment Upcoming Encounters Date Type Department Care Team (Late st Contact Info) Description 10/13/2024 8:30 AM EDT Office Visit General Surgery [facility] [address] [facility] [address] [place] [address] Morgan Chance, [address] [facility] [address] [facility] [address] [place] [address] Scheduled Referrals Name Type Priority Associated Diagnoses Order Schedule Ambulatory referral to Gastroenterology Outpatient Referral Routine Screening for colon cancer Primary hypertension Anxiety 1 Occurrences starting 07/16/2024 until 07/16/2025 Ambulatory referral to Nephrology Outpatient Referral Routine Screening for colon cancer Primary hypertension Anxiety 1 Occurrences starting 07/16/2024 until 07/16/2025 documented as of this encounter Visit Diagnoses Diagnosis Primary hypertension- Primary Unspecified essential hypertension Screening for colon cancer Special screening for malignant neoplasms, colon Anxiety Anxiety state, unspecified documented in this encounter Care Teams Edge Stainer Relationship Specialty Start Date End Date Antony Hassan MD 175 [facility] [address] [place] [address] PCP - General 10/29/22 documented as of this encounter
--- OUTSIDE RECORDS SUMMARY | 2024-08-04 13:31 | XMS_ITS | Clinical Summary ---
Author Organization [facility] Address [address] [place] [address] Care Team Providers Care Material Handling Warehouse Supervisor Name Role Phone Unknown Primary Care Provider [phone] Allergies No known active allergies Social History Tobacco Use Types Packs/Day Years Used Date Smoking Tobacco: Never Assessed Sex and Gender Information Value Date Recorded Sex Assigned at Not on file Gender Identity Not on file Sexual Orientation Not on file Last Filed Vital Signs Vital Sign Reading Time Taken Comments Blood Pressure 142/88 05/24/2018 9:51 AM EST Pulse 101 05/24/2018 9:51 AM EST Temperature 36.4 ??C (97.6 ??F) 05/24/2018 8:12 AM ES T Respiratory Rate 18 05/24/2018 9:51 AM EST Oxygen Saturation 97% 05/24/2018 9:51 AM EST Inhaled Oxygen Concentration - - Weight - - Height - - Body Mass Index - - Plan of Treatment Health Maintenance Due Date Last Done Comments Hepatitis C Virus Screening 1969 HIV Screening 1982 DTaP/Tdap/Td Vaccines (1 - Tdap) 1988 Hepatitis B Vaccines (1 of 3 - 19+ 3-dose series) 1988 Colonoscopy 2014 Pneumococcal Vaccines 50+ (1 of 1 - PCV) 10/13/2019 Zoster (Shingles) Vaccine (1 of 2) 10/13/2019 Influenza Vaccine 01/09/2024 COVID-19 Vaccine ( - 2023-2 5 season) 2024 Pneumococcal Vaccine: Pediat nidhi (0-5 Years) and At-Risk Patients (6 to 49 Years) Aged Out No longer eligible b ased on patient's age to complete this topic Care Teams Material Handling Warehouse Supervisor Relationship Specialty Start Date End Date Unknown Unknow Provider Address PCP - General 05/24/18
--- OUTSIDE RECORDS SUMMARY | 2024-08-04 13:31 | XMS_ITS | Encounter Summary ---
Author Organization [facility] Address [address] [place] [address] Care Team Providers Care Online Merchandising Manager Name Role Phone Antony Hassan MD Primary Care Provider [phone] Reason for Visit * Reason Onset Date Comments Mo: Fax HERMES 07/31/2024 Encounter Details Date Type Department Care Team (Late st Contact Info) Description 07/31/2024 Telephone Internal Medicine - [place] [address] [facility] [address] [place] [phone] Antony Hassan MD [address] [facility] [address] [place] [address] [place] [address] Mo: Fax HERMES Social History Tobacco Use Types Packs/Day Years [...] as of this encounter Progress Notes * Chin Edwards MA - 08/03/2024 9:51 AM EST Last office notes and most recent labs faxed to [facility] as requested. * Madai Aponte - 07/31/2024 4:28 PM EST [facility] and requested the 2 most recent labs and the most recent office notes sentover to them so patient can get treated. Please advise documented in this encounter Plan of Treatment Upcoming Encounters Date Type Department Care Team (Late st Contact Info) Description 10/13/2024 8:30 AM EDT Office Visit General Surgery - [place] 175 [facility] [address] [place] [address] Morgan Chance, DO 175 [facility] [address] [place] [address] documented as of this encounter Visit Diagnoses Not on filedocumented in this encounter Care Teams Online Merchandising Manager Relationship Specialty Start Date End Date Antony Hassan MD 175 [facility] [address] [place] [address] PCP - General 10/29/22 documented as of this encounter
--- OUTSIDE RECORDS SUMMARY | 2024-08-04 13:31 | XMS_ITS | Encounter Summary ---
Author Organization [facility] Address [address] [place] [address] Care Team Providers Care Pattern Checker Name Role Phone Antony Hassan MD Primary Care Provider [phone] Encounter Details Date Type Department Care Team (Late Contact Info) Description 07/13/2024 Telephone Internal Medicine - [place] 175 [facility] [address] [place] [phone] Antony Hassan MD 175 [facility] [address] [place] [address] Social History Tobacco Use Types Packs/Day Years [...] as of this encounter Plan of Treatment Upcoming Encounters Date Type Department Care Team (Late st Contact Info) Description 10/13/2024 8:30 AM EDT Office Visit General Surgery - [place] 175 [facility] [address] [place] [phone] Morgan Chance, 175 [facility] [address] [place] [address] documented as of this encounter Visit Diagnoses Not on filedocumented in this encounter Care Teams Pattern Checker Relationship Specialty Start Date End Date Antony Hassan MD [address] [address] PCP - General 10/29/22 documented as of this encounter
== END 2024-08-04 12:08 | disposition home or self-care (01) ==
PROVIDERS: PCP Internal Medicine; Referring Provider Internal Medicine; Visit Provider Internal Medicine Nephrology
DX: I10 Essential (primary) hypertension (principal)
CPT/HCPCS: 99204

== ENCOUNTER 2024-08-05 08:43 | Outpatient (REF) | payer OTHER, SELFPAY ==
--- OUTSIDE RECORDS SUMMARY | 2024-08-05 09:28 | XMS_ITS | Clinical Summary ---
Author Organization [facility], Address [address] [place] [address] [place] [address] Phone Care Team Providers Care Superintendent Meter Tests Name Role Phone Antony Hassan MD Primary Care Provider [phone] Active Problems Problem Noted Date Diagnosed Date [...] 2018 Influenza Vaccine (#1) 2024 03/28/2020 Insurance [facility] Care Teams Superintendent Meter Tests Relationship Specialty Start Date End Date Antony Hassan MD [address] [address] PCP - General Internal Medicine 10/04/22
--- OUTSIDE RECORDS SUMMARY | 2024-08-05 09:28 | XMS_ITS | Clinical Summary ---
Author Organization [facility] Address [address] [place] [address] Care Team Providers Care Park Attendant Name Role Phone Blair Baez MD Primary [...] age to complete this topic Care Teams Park Attendant Relationship Specialty Start Date End Date Blair Baez MD PCP - General Family Medicine 09/03/17
--- OUTSIDE RECORDS SUMMARY | 2024-08-05 09:28 | XMS_ITS | Encounter Summary ---
Author Organization [facility] [address] Address [address] [place] [address] Care Team Providers Care Senior Insight Manager International Name Role Phone Antony Hassan MD Primary Care Provider Reason for Visit * Reason Onset Date Comments Mo: Fax HERMES 07/31/2024 Encounter Details Date Type Department Care Team (Late st Contact Info) Description 07/31/2024 Telephone Internal Medicine - [place] [address] [facility] [address] [place] [address] Antony Hassan MD [address] [facility] [address] [place] [address] Mo: Fax HERMES Social History Tobacco Use [...] and most recent labs faxed to [facility] [employer] as requested. * Madai Aponte - 07/31/2024 [...] AM EDT Office Visit General Surgery - [place] 175 [facility] 110 [place] [address] Morgan Chance, DO 175 [facility] 110 [place] [address] documented as of this encounter Visit Diagnoses Not on filedocumented in this encounter Care Teams Senior Insight Manager International Relationship Specialty Start Date End Date Antony Hassan MD 175 [facility] 200 [place] [address] PCP - General 10/29/22 documented as of this encounter
--- OUTSIDE RECORDS SUMMARY | 2024-08-05 09:28 | XMS_ITS | Encounter Summary ---
Author Organization [facility] Address [address] [place] [address] Care Team Providers Care Bosom Presser Name Role Phone Antony Hassan MD Primary Care Provider [phone] Encounter Details Date Type Department Care Team (Late Contact Info) Description 07/13/2024 Telephone Internal Medicine - [place] 175 [facility] 200 [place] [phone] Antony Hassan MD 175 [facility] 200 [place] [address] Social History Tobacco Use Types Packs/Day Years [...] AM EDT Office Visit General Surgery - [place] 175 [facility] 110 [place] [phone] Morgan Chance, 175 [facility] 110 [place] [address] documented as of this encounter Visit Diagnoses Not on filedocumented in this encounter Care Teams Bosom Presser Relationship Specialty Start Date End Date Antony Hassan MD [address] [address] PCP - General 10/29/22 documented as of this encounter
--- OUTSIDE RECORDS SUMMARY | 2024-08-05 09:28 | XMS_ITS | Encounter Summary ---
Author Organization [facility] Address [address] [place] [address] Care Team Providers Care Enrollment Clerk Name Role Phone Antony Hassan MD Primary Care Provider [phone] Reason for Visit * Reason Onset Date Comments Form:Disability Placard 07/08/2024 Encounter Details Date Type Department Care Team (Late st Contact Info) Description 07/08/2024 Telephone Internal Medicine - [place] [address] [facility] [address] [place] [phone] Antony Hassan MD [address] [facility] [address] [place] [address] Form:Disability Placyossi Social History Tobacco Use Types [...] EST Mailed to Medical Affairs. [address] [address] [place] [address] * Yoko Aguilar MA - 07/16/2024 3:13 PM EST Placed in providers folder for signature. * Brissa Hart - 07/16/2024 2:44 PM EST PT Resubmitted Form Correctly Filled * Brissa Hart - 07/13/2024 1:23 PM EST PT notified that front of form needs to be filled out prior to doctors signature. PT was called and notified. Placed inside CONCRETE PILE DRIVER OPERATOR Box * Brissa Hart - 07/08/2024 11:44 AM EST Disabled Parking Max CONCRETE PILE DRIVER OPERATOR: [phone] Vehicle: Driven Only By PT Medical Condition: Limited Mobility Due To Right Knee Surgery documented in this encounter Plan of Treatment Upcoming Encounters Date Type Department Care Team (Late st Contact Info) Description 10/13/2024 8:30 AM EDT Office Visit General Surgery - [place] 175 [facility] [address] [place] [phone] Morgan Chance, [address] [facility] [address] [facility] [address] [place] [address] documented as of this encounter Visit Diagnoses Not on filedocumented in this encounter Care Teams Enrollment Clerk Relationship Specialty Start Date End Date Antony Hassan MD [address] [facility] [address] [place] [address] PCP - General 10/29/22 documented as of this encounter
--- OUTSIDE RECORDS SUMMARY | 2024-08-05 09:28 | XMS_ITS | Clinical Summary ---
Author Organization 175 [facility] Address [address] [place] [address] Phone Care Team Providers Care Preforming Machine Operator Name Role Phone Antony Hassan MD Primary Care Provider Allergies No known active allergies Medications oxyCODONE [...] Team Description 07/31/2024 Telephone Internal Medicine - [address] [place] [address] Antony Hassan MD Joseph: Fax HERMES 07/16/2024 3:30 PM EST Office Visit Internal Medicine [address] [place] [address] Antony Hassan MD Primary hypertension (Primary Dx); Screening for colon cancer; Anxiety 07/13/2024 Telephone Internal Medicine [address] [place] [address] Antony Hassan MD 07/08/2024 Telephone Internal [address] [address] Antony Hassan MD Form:Disability Placard 07/08/2024 [place] [facility] [address] [address] Antony Hassan MD Joseph:Refill from Last 3 Months Immunizations Name Administration Dates Next Due Pfizer SARS-CoV-2 COVID-19, mRNA, LNP-S, preservative free 05/20/2021 Surgical History Surgery Date Site/Laterality Comments SHOULDER ARTHROSCOPY 11/30/2021 Left PROCEDURE: ME SURGICAL ARTHROSCOPY SHOULDER W/LSS&RESCJ ADS; COMMENT: Patient underwent left rotator cuff repair with augmentation and labral debridement with Dr. Brennan OTHER SURGICAL HISTORY 07/25/2023 Right PROCEDURE: ME ARTHRS KNE SURG W/MENISCECTOMY MED/LAT W/SHVG; COMMENT: PMM, partial synovectomy HERNIA REPAIR PROCEDURE: ME REPAIR FIRST ABDOMINAL WALL HERNIA Medical History [...] AM EDT Office Visit General Surgery - [place] [address] [facility] [address] [place] [address] Morgan Chance, [address] [place] [address] Health Maintenance Due Date Last Done Comments [...] * Annual BMP Blood Test (12/31/2023) Pathologist [facility] Annual BMP Blood Test abstracted Historical Provider HEALTH MAINTENANCE Final Result * (ABNORMAL) Lipid panel (12/31/2023) [facility] LDL/HDL Ratio 3 0 - 4 Triglycerides 67 0 - 150 mg/dL Cholesterol 230(A) 0 - 200 mg/dL HDL 78 >=40 mg/dL LDL Cholesterol 139(A) 0 - 100 mg/dL Blood Venous blood specimen / Unknown us Historical Provider LAB BLOOD ORDERABLES Ofelia l Result * Depression Screening (12/06/2023) Pathologist [facility] Depression Screening abstracted Historical Provider HEALTH MAINTENANCE Final Result * COLONOSCOPY (04/06/2020 10:54 AM EDT) Anatomical Region Laterality Modality Endoscopy Jareth Gomez DO GI~PROCEDURE ORDERABLES Ofelia l Result from Last 3 Months or Most Recently Relevant to Health Maintenance Insurance [facility] MEDICARE MEDICAID - [place] Care Teams Preforming Machine Operator Relationship Specialty Start Date End Date Antony Hassan MD [address] [place] [address] PCP - General 10/29/22
--- OUTSIDE RECORDS SUMMARY | 2024-08-05 09:28 | XMS_ITS | Clinical Summary ---
Author Organization [facility] Address [address] [place] [address] Care Team Providers Care Weatherseal Technician Name Role Phone Unknown Primary Care Provider [phone] Allergies No known active allergies Social History [...] age to complete this topic Care Teams Weatherseal Technician Relationship Specialty Start Date End Date Unknown Unknow Provider Address PCP - General 05/24/18
--- OUTSIDE RECORDS SUMMARY | 2024-08-05 09:28 | XMS_ITS | Encounter Summary ---
Author Organization [facility], Address [address] [place] [address] Phone Care Team Providers Care Comb Winder Name Role Phone Antony Hassan MD Primary Care Provider [phone] Encounter Details Date Type Department Care Team (Late st Contact Info) Description 10/04/2022 Documentation Only [facility], [address] [place] [address] Antony Hassan MD [address] [place] [address] Social History Tobacco Use Types Packs/Day Years [...] on filedocumented in this encounter Care Teams Comb Winder Relationship Specialty Start Date End Date Antony Hassan MD 175 [facility] 200 [place] [address] PCP - General Internal Medicine 10/04/22 documented as of this encounter
--- OUTSIDE RECORDS SUMMARY | 2024-08-05 09:28 | XMS_ITS | Encounter Summary ---
Author Organization [facility] Address [address] [place] [address] Care Team Providers Care Executive Advisor Name Role Phone Antony Hassan MD Primary Care Provider [phone] Reason for Visit * Reason Onset Date Comments Mo:Refill 07/08/2024 Encounter Details Date Type Department Care Team ([facility] st Contact Info) Description 07/08/2024 Telephone Internal Medicine - [place] [address] [facility] [address] [place] [phone] Antony Hassan MD [address] [facility] [address] [place] [address] [place] [address] Mo:Refill Social History Tobacco Use Types Packs/Day [...] AM EDT Office Visit General Surgery - [place] 175 [facility] 110 [place] [address] Mrogan Chance DO 175 [facility] 110 [place] [address] documented as of this encounter Visit Diagnoses [...] documented as of this encounter Care Teams Executive Advisor Relationship Specialty Start Date End Date Antony Hassan MD 175 [facility] 200 [place] [address] PCP - General 10/29/22 documented as of this encounter
--- OUTSIDE RECORDS SUMMARY | 2024-08-05 09:28 | XMS_ITS | Clinical Summary ---
Author Organization [facility] Address [address] [place] [address] Care Team Providers Care Studio Camera Operator Name Role Phone Alverto Astudillo MD Primary Care Provider [phone] Alverto Astudillo MD Unavailable [phone] Medications Escitalopram Oxalate (LEXAPRO) 10 MG tablet [...] age to complete this topic Care Teams Studio Camera Operator Relationship Specialty Start Date End Date Alverto Astudillo MD [address] [place] [address] [address] [place] [address] PCP - General 01/14/23 Alverto Astudillo MD [address] [place] [address] [address] [place] [address] PCP - Backup PCP Internal Medicine 07/11/23
--- OUTSIDE RECORDS SUMMARY | 2024-08-05 09:28 | XMS_ITS | Encounter Summary ---
Author Organization [facility] Address [address] [place] [address] Care Team Providers Care Commodity Trader Name Role Phone Antony Hassan MD Primary Care Provider [phone] Reason for Referral * Consultation (Routine) - Authorized Specialty Diagnoses / Procedures Referred By Contridge t Referred To Contact Nephrology Diagnoses Screening for colon cancer Primary hypertension Anxiety Antony Hassan MD 175 [facility] [address] [place] [address] Phone: tel: fax: Bruce Alegre MD [address] [facility] [address] [place] [address] Phone: tel: fax: Referral ID Status Reason Start Date Expiration Date Visits Requested Visits Authorized [id number] Authorized Specialty Services Required 07/16/2024 07/16/2025 1 1 * Consultation (Routine) - Closed Specialty Diagnoses / Procedures Referred By Contac t Referred To Contact Gastroenterology Diagnoses Screening for colon cancer Primary hypertension Anxiety Antony Hassan MD 175 [facility] [address] [place] [address] Phone: tel: fax: Gastroenterology - [address] [facility] [address] [place] [address] Phone: tel: fax: Referral ID Status Reason Start Date Expiration Date V isits Requested Visits Authorized [id number] Closed Specialty Services Required 07/16/2024 07/16/2025 1 0 Reason for Visit * Reason Comments Follow-up Referral Encounter Details Date Type Department Care Team (Late st Contact Info) Description 07/16/2024 3:30 PM EST Office Visit Internal Medicine - [place] 175 [facility] [address] [place] [phone] Antony Hassan MD 175 [facility] [place] [address] [place] [address] Primary hypertension (Primary Dx); Screening for colon [...] History: Procedure Laterality Date HERNIA REPAIR PROCEDURE: TN REPAIR FIRST ABDOMINAL WALL HERNIA OTHER SURGICAL HISTORY Right 07/25/2023 PROCEDURE: TN ARTHRS KNE SURG W/MENISCECTOMY MED/LAT W/SHVG; COMMENT: PMM, partial synovectomy SHOULDER ARTHROSCOPY Left 11/30/2021 PROCEDURE: [place] SURGICAL ARTHROSCOPY SHOULDER W/LSS&RESCJ ADS; COMMENT: Patient [...] losartan and Bystolic for hypertension .refer to night shift supervisor. Also referred to GI for screening colonoscopy. documented in this encounter Plan of Treatment Upcoming Encounters Date Type Department Care Team (Late st Contact Info) Description 10/13/2024 8:30 AM EDT Office Visit General Surgery [facility] [address] [facility] [address] [place] [address] Morgan Chance, [address] [facility] [address] [facility] [address] [place] [address] Scheduled Referrals Name Type Priority Associated Diagnoses [...] unspecified documented in this encounter Care Teams Commodity Trader Relationship Specialty Start Date End Date Antony Hassan MD 175 [facility] [address] [place] [address] PCP - General 10/29/22 documented as of this encounter
[2024-08-09 14:33] LABS: Metanephrine, Free 44 pg/mL (<=57); Normetanephrines, Free 112 pg/mL (<=148); Total Metanephrine, Free 156 pg/mL (<=205)
== END 2024-08-05 08:44 | disposition home or self-care (01) ==
LOC: HO.LAB 08:43
PROVIDERS: PCP Internal Medicine; Visit Provider Internal Medicine Nephrology
DX: I10 Essential (primary) hypertension (principal)
CPT/HCPCS: 36415; 83835

== ENCOUNTER 2024-08-21 09:39 | Outpatient (REF) | payer OTHER, SELFPAY ==
--- NOTE | ~2024-08-21 | US_ITS ---
EXAMINATION: US RETROPERITONEAL LIMITED (RENAL ONLY) CLINICAL INFORMATION: Essential hypertension. Rule out renal artery stenosis. COMPARISON: None available. TECHNIQUE: Ultrasound along with color Doppler imaging and spectral analysis was performed of the kidneys. FINDINGS: RENAL MEASUREMENTS: Right: 11.8 x 6.4 x 6.1 cm (Sag x AP x TV); normal sonographic appearance. Left: 12.0 x 6.0 x 5.2 cm (Sag x AP x TV); normal sonographic appearance. No hydronephrosis. Normal cortical echogenicity and thickness. No suspicious masses. Spectral Doppler analysis: Right Kidney: -Peak systolic velocity in the proximal right renal artery = 112 cm/s. Normal waveforms. -Peak systolic velocity in the mid right renal artery = 67 cm/s. Normal waveforms. -Peak systolic velocity in the distal right renal artery = 69 cm/s. Normal waveforms. -Patent right renal vein. -Upper pole interlobar artery resistive index of 0.63. -Midpole interlobar artery resistive index of 0.63. -Lower pole interlobar artery resistive index of 0.60. RAR right = 1.33 Left Kidney: -Peak systolic velocity in the proximal left renal artery = 79 cm/s. Normal waveforms. -Peak systolic velocity in the mid left renal artery = 129 cm/s. Normal waveforms. -Peak systolic velocity in the distal left renal artery = 123 cm/s. Normal waveforms. -Patent left renal vein. -Upper pole interlobar artery resistive index of 0.55. -Mid pole interlobar artery resistive index of 0.64. -lower pole interlobar artery resistive index of 0.60. RAR left = 1.54 Aorta: -Peak systolic velocity = 84 cm/s. US/US renal BI IMPRESSION: 1. No evidence of renal artery stenosis or abnormal waveforms bilaterally on color/spectral Doppler examination (based on peak systolic velocities and resistive indices). 2. Renal parenchyma is normal. Electronically signed by: Thierry Rodriges MD 08/21/2024 10:25 AM EDT
--- NOTE | ~2024-08-21 | US_ITS ---
EXAMINATION: US RETROPERITONEAL LIMITED (RENAL ONLY) CLINICAL INFORMATION: Essential hypertension. Rule out renal artery stenosis. COMPARISON: None available. TECHNIQUE: Ultrasound along with color Doppler imaging and spectral analysis was performed of the kidneys. FINDINGS: RENAL MEASUREMENTS: Right: 11.8 x 6.4 x 6.1 cm (Sag x AP x TV); normal sonographic appearance. Left: 12.0 x 6.0 x 5.2 cm (Sag x AP x TV); normal sonographic appearance. No hydronephrosis. Normal cortical echogenicity and thickness. No suspicious masses. Spectral Doppler analysis: Right Kidney: -Peak systolic velocity in the proximal right renal artery = 112 cm/s. Normal waveforms. -Peak systolic velocity in the mid right renal artery = 67 cm/s. Normal waveforms. -Peak systolic velocity in the distal right renal artery = 69 cm/s. Normal waveforms. -Patent right renal vein. -Upper pole interlobar artery resistive index of 0.63. -Midpole interlobar artery resistive index of 0.63. -Lower pole interlobar artery resistive index of 0.60. RAR right = 1.33 Left Kidney: -Peak systolic velocity in the proximal left renal artery = 79 cm/s. Normal waveforms. -Peak systolic velocity in the mid left renal artery = 129 cm/s. Normal waveforms. -Peak systolic velocity in the distal left renal artery = 123 cm/s. Normal waveforms. -Patent left renal vein. -Upper pole interlobar artery resistive index of 0.55. -Mid pole interlobar artery resistive index of 0.64. -lower pole interlobar artery resistive index of 0.60. RAR left = 1.54 Aorta: -Peak systolic velocity = 84 cm/s. US/US renal doppler IMPRESSION: 1. No evidence of renal artery stenosis or abnormal waveforms bilaterally on color/spectral Doppler examination (based on peak systolic velocities and resistive indices). 2. Renal parenchyma is normal. Electronically signed by: Thierry Rodriges MD 08/21/2024 10:25 AM EDT
--- OUTSIDE RECORDS SUMMARY | 2024-08-21 10:36 | XMS_ITS | Clinical Summary ---
Author Organization [facility] Address [address] [place] [address] Care Team Providers Care Hi Ranger Operator Name Role Phone Unknown Primary Care Provider [phone] Allergies No known active allergies Social History [...] age to complete this topic Care Teams Hi Ranger Operator Relationship Specialty Start Date End Date Unknown Unknow Provider Address PCP - General 05/24/18
--- OUTSIDE RECORDS SUMMARY | 2024-08-21 10:36 | XMS_ITS | Encounter Summary ---
Author Organization [facility] Address [address] [place] [address] Care Team Providers Care Oral Surgeon Name Role Phone Antony Hassan MD Primary Care Provider [phone] Encounter Details Date Type Department Care Team (Late Contact Info) Description 07/13/2024 Telephone Internal Medicine - [place] 175 [facility] [address] [place] [phone] Antony Hassan MD 175 [facility] 200 [place] [address] Social History Tobacco Use Types Packs/Day Years [...] AM EDT Office Visit General Surgery - [place] 175 [facility] [address] [place] [phone] Morgan Chance, 175 [facility] [address] [place] [address] documented as of this encounter Visit Diagnoses Not on filedocumented in this encounter Care Teams Oral Surgeon Relationship Specialty Start Date End Date Antony Hassan MD [address] [address] PCP - General 10/29/22 documented as of this encounter
--- OUTSIDE RECORDS SUMMARY | 2024-08-21 10:36 | XMS_ITS | Clinical Summary ---
Author Organization [facility] Address [address] [place] [address] Care Team Providers Care Gluten Settling Tender Name Role Phone Blair Baez MD Primary [...] age to complete this topic Care Teams Gluten Settling Tender Relationship Specialty Start Date End Date Blair Baez MD PCP - General Family Medicine 09/03/17
--- OUTSIDE RECORDS SUMMARY | 2024-08-21 10:36 | XMS_ITS | Clinical Summary ---
Author Organization [facility] Address [address] [place] [address] Care Team Providers Care Emergency Man Name Role Phone Alverto Astudillo MD Primary Care Provider [phone] Alverto Astudillo MD Unavailable [phone] Medications Escitalopram Oxalate (LEXAPRO) 10 MG tablet [...] age to complete this topic Care Teams Emergency Man Relationship Specialty Start Date End Date Alverto Astudillo MD [address] [place] [address] [address] [place] [address] PCP - General 01/14/23 Alverto Astudillo MD [address] [place] [address] [address] [place] [address] PCP - Backup PCP Internal Medicine 07/11/23
--- OUTSIDE RECORDS SUMMARY | 2024-08-21 10:36 | XMS_ITS | Clinical Summary ---
Author Organization [facility] Address [address] [place] [address] Phone Care Team Providers Care Section Supervisor Name Role Phone Antony Hassan MD Primary Care Provider [phone] Active Problems Problem Noted Date Diagnosed Date Hypo-osmolality and hyponatremia 11/16/2022 Encounters Date Type Department Care Team Description 08/19/2024 Documentation Only [facility] [address] [place] [phone] Margarita Rascon MA 08/19/2024 Documentation Only [facility] [address] [place] [phone] Margarita Rascon MA from Last 3 Months Social History Tobacco Use Types Packs/Day Years [...] 2018 Influenza Vaccine (#1) 2024 03/28/2020 Insurance [facility] Care Teams Section Supervisor Relationship Specialty Start Date End Date Antony Hassan MD 175 [facility] 200 [place] [address] PCP - General Internal Medicine 10/04/22
--- OUTSIDE RECORDS SUMMARY | 2024-08-21 10:36 | XMS_ITS | Encounter Summary ---
Author Organization [facility] [place], Address [address] [place] [address] Phone Care Team Providers Care Software Installation Engineer Name Role Phone Antony Hassan MD Primary Care Provider [phone] Encounter Details Date Type Department Care Team (Late st Contact Info) Description 10/04/2022 Documentation Only [facility] [facility], [address] [facility] [place] [address] Antony Hassan MD [address] [place] [address] Social History Tobacco Use Types Packs/Day Years [...] on filedocumented in this encounter Care Teams Software Installation Engineer Relationship Specialty Start Date End Date Antony Hassan MD 175 [facility] 200 [place] [address] PCP - General Internal Medicine 10/04/22 documented as of this encounter
--- OUTSIDE RECORDS SUMMARY | 2024-08-21 10:36 | XMS_ITS ---
Author Name [facility] Organization Unknown Care Team Organization Name Specialty Phone Email Start Date End Da te [facility], PTAMIKO MUNOZ Primary Care 02/24/2021 01/27/2024
--- OUTSIDE RECORDS SUMMARY | 2024-08-21 10:36 | XMS_ITS | Clinical Summary ---
Author Organization 175 [facility] Address [address] [place] [address] Phone Care Team Providers Care Securities Underwriter Name Role Phone Antony Hassan MD Primary Care Provider [phone] Allergies No known active allergies Medications oxyCODONE (ROXICODONE) 5 mg immediate release tablet Take 1 Tablet by mouth every 6 hours as needed for Pain. Active sertraline (ZOLOFT) 50 mg tablet Take 1 tablet (50 mg total) by mouth 1 (one) time each day. 12/07/2023 Active oxyCODONE (ROXICODONE) 5 mg immediate release tablet Take 1 Tablet by mouth every 4 hours as needed. 07/25/2023 Active CASANTHRANOL-DOC USATE SODIUM ORAL Take by mouth. Active naproxen (NAPROSYN) 500 mg tablet Take 1 Tablet by mouth 2 times daily (with meals). Active amLODIPine (NORVASC) 5 mg tablet Take 1 tablet (5 mg total) by mouth 1 (one) time each day. 90 tablet 1 07/08/2024 Active nebivoloL (BYSTOLIC) 5 mg tablet Take 1 tablet (5 mg total) by mouth 1 (one) time each day. 90 tablet 1 07/08/2024 Active losartan (COZAAR) 100 mg tablet Take 1 tablet (100 mg total) by mouth 1 (one) time each day. 90 tablet 1 07/08/2024 Active Active Problems Problem Noted Date Diagnosed [...] symptoms. DDD (degenerative disc disease), lumbar 04/11/20 23 Overview (03/19/2024): Last Assessment & Plan: Patient [...] Team Description 07/31/2024 Telephone Internal Medicine - [address] [address] Antony Hassan MD Joseph: Fax HERMES 07/16/2024 3:30 PM EST Office Visit Internal Medicine [address] [address] Antony Hassan MD Primary hypertension (Primary Dx); Screening for colon cancer; Anxiety 07/13/2024 Telephone Internal Medicine [address] [address] Antony Hassan MD 07/08/2024 Telephone Internal Medicine - [place] 175 [facility] [address] [place] [address] Antony Hassan MD Form:Disability Max 07/08/2024 Telephone Internal Medicine - [place] 175 [facility] [address] [place] [address] Antony Hassan MD Joseph:Refill from Last 3 Months Immunizations Name Administration Dates Next Due Pfizer SARS-CoV-2 COVID-19, mRNA, LNP-S, preservative free 05/20/2021 Surgical History Surgery Date Site/Laterality Comments SHOULDER ARTHROSCOPY 11/30/2021 Left PROCEDURE: [place] SURGICAL ARTHROSCOPY SHOULDER W/LSS&RESCJ ADS; COMMENT: Patient underwent left rotator cuff repair with augmentation and labral debridement with Dr. Brennan OTHER SURGICAL HISTORY 07/25/2023 Right PROCEDURE: [place] ARTHRS KNE SURG W/MENISCECTOMY MED/LAT W/SHVG; COMMENT: PMM, partial synovectomy HERNIA REPAIR PROCEDURE: [place] REPAIR FIRST ABDOMINAL WALL HERNIA Medical History [...] AM EDT Office Visit General Surgery - [place] [address] [facility] [address] [place] [address] Morgan Chance, [address] [place] [address] [place] [address] Health Maintenance Due Date Last Done Comments [...] Procedure Name Priority Date/Time Associated Diagnosis Comments EXTERNAL CLINICAL LAB 08/04/2024 ANNUAL BMP BLOOD TEST Routine 12/31/2023 LIPID PANEL Routine 12/31/2023 DEPRESSION SCREENING Routine 12/06/2023 COLONOSCOPY Routine 04/06/2020 10:54 AM EDT from Last 3 Months or Most Recently Relevant to Health Maintenance Results * External clinical lab (08/04/2024) Provider Luis Onbase LAB BLOOD ORDERABLES Fin al Result * Annual BMP Blood Test (12/31/2023) Pathologist [facility] Annual BMP Blood Test abstracted Result [facility] Historical Provider HEALTH MAINTENANCE Final Result * (ABNORMAL) Lipid panel (12/31/2023) [facility] LDL/HDL Ratio 3 0 - 4 Triglycerides 67 0 - 150 mg/dL Cholesterol 230(A) 0 - 200 mg/dL HDL 78 >=40 mg/dL LDL Cholesterol 139(A) 0 - 100 mg/dL Blood Venous blood specimen / Unknown Result [facility] Historical Provider LAB BLOOD ORDERABLES Ofelia l Result * Depression Screening (12/06/2023) Pathologist [facility] Depression Screening abstracted Result [facility] Provider HEALTH MAINTENANCE Final Result * COLONOSCOPY (04/06/2020 10:54 AM EDT) Anatomical Region Laterality Modality Endoscopy Jareth Gomez DO GI~PROCEDURE ORDERABLES Ofelia l Result from Last 3 Months or Most Recently Relevant to Health Maintenance Insurance [facility] MEDICARE MEDICAID - [place] Care Teams Securities Underwriter Relationship Specialty Start Date End Date Antony Hassan MD [address] [place] [address] [place] [address] PCP - General 10/29/22
--- OUTSIDE RECORDS SUMMARY | 2024-08-21 10:36 | XMS_ITS | Encounter Summary ---
Author Organization [facility] Address [address] [place] [address] Care Team Providers Care Scientific Helper Name Role Phone Antony Hassan MD Primary Care Provider [phone] Reason for Visit * Reason Onset Date Comments Mo: Fax HERMES 07/31/2024 Encounter Details Date Type Department Care Team (Late st Contact Info) Description 07/31/2024 Telephone Internal Medicine - [place] [address] [facility] [address] [place] [address] Antony Hassan MD [address] [facility] [address] [place] [address] Mo: Fax HERMES Social History Tobacco Use [...] and most recent labs faxed to [facility] as requested. * Madai Aponte - 07/31/2024 [...] AM EDT Office Visit General Surgery - [place] 175 [facility] [address] [place] [address] Morgan Chance, DO 175 [facility] [address] [place] [address] documented as of this encounter Visit Diagnoses Not on filedocumented in this encounter Care Teams Scientific Helper Relationship Specialty Start Date End Date Antony Hassan MD 175 [facility] 200 [place] [address] PCP - General 10/29/22 documented as of this encounter
--- OUTSIDE RECORDS SUMMARY | 2024-08-21 10:36 | XMS_ITS | Encounter Summary ---
Author Organization [facility], Address [address] [place] [address] Phone Care Team Providers Care Plater Barrel Name Role Phone Antony Hassan MD Primary Care Provider [phone] Encounter Details Date Type Department Care Team (Late st Contact Info) Description 08/19/2024 Documentation Only [facility], [address] [place] [address] [place] [address] [place] [phone] Social History Tobacco Use Types Packs/Day Years [...] on filedocumented in this encounter Care Teams Plater Barrel Relationship Specialty Start Date End Date Antony Hassan MD [address] [address] PCP - General Internal Medicine 10/04/22 documented as of this encounter
--- OUTSIDE RECORDS SUMMARY | 2024-08-21 10:37 | XMS_ITS | Encounter Summary ---
Author Organization [facility] Address [address] [place] [address] Care Team Providers Care Glass Silverer Name Role Phone Antony Hassan MD Primary Care Provider [phone] Reason for Visit * Reason Onset Date Comments Mo:Refill 07/08/2024 Encounter Details Date Type Department Care Team ([facility] st Contact Info) Description 07/08/2024 Telephone Internal Medicine - [place] [address] [facility] [address] [place] [phone] Antony Hassan MD [address] [facility] [address] [place] [address] [place] [address] Mo:Refill Social History Tobacco Use Types Packs/Day [...] AM EDT Office Visit General Surgery - [place] 175 [facility] [address] [place] [address] Morgan Chance DO 175 [facility] [address] [place] [address] documented as of this encounter Visit Diagnoses [...] documented as of this encounter Care Teams Glass Silverer Relationship Specialty Start Date End Date Antony Hassan MD 175 [facility] [address] [place] [address] PCP - General 10/29/22 documented as of this encounter
--- OUTSIDE RECORDS SUMMARY | 2024-08-21 10:37 | XMS_ITS | Encounter Summary ---
Author Organization [facility] Address [address] [place] [address] Care Team Providers Care Feeder Switchboard Operator Name Role Phone Antony Hassan MD Primary Care Provider [phone] Reason for Visit * Reason Onset Date Comments Form:Disability Placard 07/08/2024 Encounter Details Date Type Department Care Team (Late st Contact Info) Description 07/08/2024 Telephone Internal Medicine - [place] [address] [facility] [address] [place] [phone] Antony Hassan MD [address] [facility] [address] [place] [address] [place] [address] Form:Disability Placyossi Social History Tobacco Use Types [...] EST Mailed to [facility]. [address] [address] [place] [address] * Yoko Aguilar MA - 07/16/2024 3:13 PM EST Placed in providers folder for signature. * Brissa Hart - 07/16/2024 2:44 PM EST PT Resubmitted Form Correctly Filled * Brissa Hart - 07/13/2024 1:23 PM EST PT notified that front of form needs to be filled out prior to doctors signature. PT was called and notified. Placed inside SMELTER CHARGER Box * Brissa Hart - 07/08/2024 11:44 AM EST Disabled Parking Max SMELTER CHARGER: [phone] Vehicle: Driven Only By PT Medical Condition: Limited Mobility Due To Right Knee Surgery documented in this encounter Plan of Treatment Upcoming Encounters Date Type Department Care Team (Late st Contact Info) Description 10/13/2024 8:30 AM EDT Office Visit General Surgery - [place] 175 [facility] [address] [place] [phone] Morgan Chance, [address] [facility] [address] [facility] [address] [place] [address] documented as of this encounter Visit Diagnoses Not on filedocumented in this encounter Care Teams Feeder Switchboard Operator Relationship Specialty Start Date End Date Antony Hassan MD [address] [facility] [address] [place] [address] [place] [address] PCP - General 10/29/22 documented as of this encounter
--- OUTSIDE RECORDS SUMMARY | 2024-08-21 10:37 | XMS_ITS | Encounter Summary ---
Author Organization [facility], Address [address] [place] [address] Phone Care Team Providers Care Video Library Assistant Name Role Phone Antony Hassan MD Primary Care Provider [phone] Encounter Details Date Type Department Care Team (Late st Contact Info) Description 08/19/2024 Documentation Only [facility], [address] [place] [address] [place] [address] [place] [phone] Social History Tobacco Use Types Packs/Day Years [...] on filedocumented in this encounter Care Teams Video Library Assistant Relationship Specialty Start Date End Date Antony Hassan MD [address] [address] PCP - General Internal Medicine 10/04/22 documented as of this encounter
== END 2024-08-21 09:40 | disposition home or self-care (01) ==
LOC: HO.HMGCX 09:39
PROVIDERS: PCP Internal Medicine; Visit Provider Internal Medicine Nephrology
DX: I10 Essential (primary) hypertension (principal)
CPT/HCPCS: 76775; 93975

== ENCOUNTER → 2024-08-21 09:40 | Outpatient (BNV) | payer OTHER, SELFPAY | PROVIDERS: PCP Internal Medicine; Visit Provider Radiology Diagnostic Radiology | DX: I10 Essential (primary) hypertension (principal) | CPT/HCPCS: 76775; 93975 ==

== ENCOUNTER → 2024-08-31 09:41 | Outpatient (BNVA) | payer MEDICARE, MEDICAID, SELFPAY | PROVIDERS: PCP Internal Medicine; Visit Provider Internal Medicine Nephrology ==

== ENCOUNTER 2024-09-01 09:50 | Outpatient (AMB) | payer MEDICARE, MEDICAID, SELFPAY ==
--- NOTE | 2024-09-01 10:12 | HO.NEPHOV_ITS ---
Vital Signs 09/01/24 10:16 Height 5 ft 5 in Weight 218 lb BMI 36.3 BP 130/70 Blood Pressure Location Lt brachial Position Sitting Pulse 84 Pulse Source Pulse Oximeter Pulse Oximetry (%) 96 Oxygen Delivery Method Room Air Intake Visit Reasons: 1mon follow-up- Conf Amusement Or Recreation Card Checker Required: No Accompanied by: Self / Same As Patient Allergies No Known Allergies Allergy (Verified 09/01/24 10:14) HPI Comments Details: Alice is a 53 year old gentleman with H/O uncontrolled hypertension on multiple anti hypertensive medications. He has gained some weight and is not compliant with low sodium diet. He has MAN and has a CPAP but struggle to be compliant with it. He denies any LVH, proteinuria, retinopathy, renal dysfunction, hypokalemia, uncontrolled thyroid disorders, palpitations, CAD, CVA, CHF, carotid stenosis, PAD or STEFANIE. He takes NSAID's and claims to be compliant with his current medications. He has not taken his medications today . He denies headache, visual disturbance , weakness, chest pain, SOB or dizziness. He has no H/O drug use. He had no specific complaints at the time of this visit [facility] Medical History (Updated 08/04/24 @ 13:19 by rBuce Alegre MD) DDD (degenerative disc disease), lumbar Cervical spondylosis Hypertension Surgical History H/O hernia repair H/O right knee surgery S/P rotator cuff repair Family History Mother Hypertension Heart disease Father Hypertension Throat cancer Social History Alcohol intake: current Comment: Socially Patient Tobacco Use Status: Never used Tobacco Review of Systems Const All systems reviewed & are unremarkable except as noted in HPI and below Physical Exam Vital Signs: Last Vital Signs Pulse 84 09/01/24 10:16 BP 130/70 09/01/24 10:16 Pulse Ox 96 09/01/24 10:16 Oxygen Delivery Method Room Air 09/01/24 10:16 BMI result Body Mass Index 36.3 Const General: comfortable and no acute distress Orientation/consciousness: patient oriented x3 HEENT Head: Yes normocephalic Mouth: Normal oral and palatal mucosa present Eyes EOM: EOMs intact bilaterally Neck Neck: Yes supple Resp Auscultation: clear to auscultation bilaterally Cardio Jugular venous distension: no JVD Rate: regular rate Heart sounds: Murmur heart sound present GI Palpation (GI): Soft to palpation Auscultation: normal bowel sounds General: Yes no CVA tenderness Back/Spine/Pelvis Back: no CVA tenderness Skin General skin exam: no rashes or lesions noted Neuro General: patient oriented x3 and moves all extremities Extrem General: Yes no pedal edema Results Reviewed Nephrology Results: Sodium 137 mmol/L (135-145) 08/04/24 Potassium 3.2 mmol/L (3.3-5.1) L 08/04/24 Chloride 101 mmol/L (96-108) 08/04/24 Carbon Dioxide 26 mmol/L (22-29) 08/04/24 BUN 10 mg/dL (9-16) 08/04/24 Creatinine 0.77 mg/dL (0.5-1.4) 08/04/24 Calcium 9.2 mg/dL (8.4-10.2) 08/04/24 Urine Creatinine 206.30 mg/dL 08/04/24 Protein/Creatinin Ratio 0.23 (<0.2) H 08/04/24 Renal US 08/21/24 Assessment & Plan Assessment & Plan (1) Hypertension: Code(s): I10 - Essential (primary) hypertension Category: Medical Qualifiers: Hypertension type: primary hypertension Qualified Code(s): I10 - Essential (primary) hypertension Plan Low sodium diet; Weight loss Needs to be compliant with CPAP Work up including imaging reviewed C/W current medications for now Avoid/Minimize NSAID's Good hydration; 24 hour BPM results reviewed Further management is pending data Answered all questions; F/U given Orders: Orders Calcium 3 Months I10 - Essential (primary) hypertension Electrolytes 3 Months I10 - Essential (primary) hypertension Blood Urea Nitrogen 3 Months I10 - Essential (primary) hypertension Creatinine 3 Months I10 - Essential (primary) hypertension Coding Level of Care Code Est Pt Level 4 (12915) Diagnoses Primary hypertension I10 Hypertension type: primary hypertension
[2024-09-01 10:16] VITALS: BP 130/70; PULSE 84; O2SAT 96; BMI 36.3
--- OUTSIDE RECORDS SUMMARY | 2024-09-01 11:16 | XMS_ITS | Encounter Summary ---
Author Organization [facility], Address [address] [place] [address] Phone Care Team Providers Care It Lead Name Role Phone Antony Hassan MD Primary Care Provider [phone] Encounter Details Date Type Department Care Team (Late st Contact Info) Description 10/04/2022 Documentation Only [facility], [address] [facility] [place] [address] Antony Hassan MD [address] [place] [id number] Social History Tobacco Use Types Packs/Day Years [...] on filedocumented in this encounter Care Teams It Lead Relationship Specialty Start Date End Date Antony Hassan MD [address] [facility] [address] [place] [address] PCP - General Internal Medicine 10/04/22 documented as of this encounter
--- OUTSIDE RECORDS SUMMARY | 2024-09-01 11:16 | XMS_ITS | Clinical Summary ---
Author Organization [facility] Address [address] [place] [address] Care Team Providers Care Dope Mixer Name Role Phone Alverto Astudillo MD Primary Care Provider [phone] Alverto Astudillo MD Unavailable [phone] Medications Escitalopram Oxalate (LEXAPRO) 10 MG tablet [...] age to complete this topic Care Teams Dope Mixer Relationship Specialty Start Date End Date Alverto Astudillo MD [address] [place] [address] [address] [place] [address] PCP - General 01/14/23 Alverto Astudillo MD [address] [place] [address] [address] [place] [address] PCP - Backup PCP Internal Medicine 07/11/23
--- OUTSIDE RECORDS SUMMARY | 2024-09-01 11:16 | XMS_ITS | Clinical Summary ---
Author Organization [facility] Address [address] [place] [address] Phone Care Team Providers Care Public Address System Installer Name Role Phone Antony Hassan MD Primary Care Provider [phone] Allergies No known active allergies Medications oxyCODONE [...] Team Description 07/31/2024 Telephone Internal Medicine - [address] [address] Antony Hassan MD Joseph: Fax HERMES 07/16/2024 3:30 PM EST Office Visit Internal Medicine [address] [address] Antony Hassan MD Primary hypertension (Primary Dx); Screening for colon cancer; Anxiety 07/13/2024 Telephone Internal Medicine [address] [address] Antony Hassan MD 07/08/2024 Telephone Internal Medicine - [place] [address] [facility] [address] [place] [address] Antony Hassan MD Form:Disability Max 07/08/2024 Telephone Internal Medicine - [place] [address] [facility] [address] [place] [address] Antony Hassan MD Joseph:Refill from [...] AM EDT Office Visit General Surgery - [place] [address] [facility] [address] [place] [address] Morgan Chance, [address] [place] [address] Health Maintenance Due Date Last Done Comments [...] Name Priority Date/Time Associated Diagnosis Comments EXTERNAL ULTRASOUND REPORT 08/21/2024 EXTERNAL CLINICAL LAB 08/05/2024 EXTERNAL CLINICAL LAB 08/04/2024 EXTERNAL CLINICAL LAB 08/04/2024 EXTERNAL CLINICAL LAB 08/04/2024 EXTERNAL CLINICAL LAB 08/04/2024 ANNUAL BMP BLOOD TEST Routine 12/31/2023 LIPID PANEL Routine 12/31/2023 DEPRESSION SCREENING Routine 12/06/2023 COLONOSCOPY Routine 04/06/2020 10:54 AM EDT from Last 3 Months or Most Recently Relevant to Health Maintenance Results * External Ultrasound Report (08/21/2024) Anatomical Region Laterality Modality Ultrasound Provider [facility] IMG US PROCEDURES Final Result * External clinical lab (08/05/2024) Only the most recent of5 resultswithin the time period is included. Provider [facility] LAB BLOOD ORDERABLES Fin al Result * Annual BMP Blood Test (12/31/2023) Pathologist [facility] Annual BMP Blood Test abstracted [facility] Provider HEALTH MAINTENANCE Final Result * (ABNORMAL) Lipid panel (12/31/2023) Pathologist [facility] LDL/HDL Ratio 3 0 - 4 Triglycerides 67 0 - 150 mg/dL Cholesterol 230(A) 0 - 200 mg/dL HDL 78 >=40 mg/dL LDL Cholesterol 139(A) 0 - 100 mg/dL Blood Venous blood specimen / Unknown Result [facility] Historical Provider LAB BLOOD ORDERABLES Ofelia l Result * Depression Screening (12/06/2023) Depression Screening abstracted Historical Provider HEALTH MAINTENANCE Final Result * COLONOSCOPY (04/06/2020 10:54 AM EDT) Anatomical Region Laterality Modality Endoscopy Jareth Gomez DO GI~PROCEDURE ORDERABLES Ofelia l Result from Last 3 Months or Most Recently Relevant to Health Maintenance Insurance [facility] MEDICARE MEDICAID - [place] Care Teams Public Address System Installer Relationship Specialty Start Date End Date Antony Hassan MD [address] [address] PCP - General 10/29/22
--- OUTSIDE RECORDS SUMMARY | 2024-09-01 11:16 | XMS_ITS | Clinical Summary ---
Author Organization [facility] Address [address] [place] [address] Care Team Providers Care Marriage Therapist Name Role Phone Blair Baez MD Primary [...] age to complete this topic Care Teams Marriage Therapist Relationship Specialty Start Date End Date Blair Baez MD PCP - General Family Medicine 09/03/17
--- OUTSIDE RECORDS SUMMARY | 2024-09-01 11:16 | XMS_ITS | Encounter Summary ---
Author Organization [facility] Address [address] [place] [address] Care Team Providers Care Manager Intelligence Name Role Phone Antony Hassan MD Primary Care Provider [phone] Reason for Visit * Reason Onset Date Comments Mo: Fax HERMES 07/31/2024 Encounter Details Date Type Department Care Team (Late st Contact Info) Description 07/31/2024 Telephone Internal Medicine - [place] [address] [facility] [address] [place] [phone] Antony Hassan MD [address] [facility] [address] [place] [address] Mo: Fax HERMES Social History Tobacco Use [...] and most recent labs faxed to [facility] as requested. * Madai Aponte - 07/31/2024 [...] AM EDT Office Visit General Surgery - [place] 175 [facility] [address] [place] [address] Morgan Chance, DO [address] [facility] [address] [place] [address] documented as of this encounter Visit Diagnoses Not on filedocumented in this encounter Care Teams Manager Intelligence Relationship Specialty Start Date End Date Antony Hassan MD 175 [facility] [address] [place] [address] PCP - General 10/29/22 documented as of this encounter
--- OUTSIDE RECORDS SUMMARY | 2024-09-01 11:16 | XMS_ITS | Encounter Summary ---
Author Organization [facility] Address [address] [place] [address] Care Team Providers Care Care Clinician Name Role Phone Antony Hassan MD Primary Care Provider [phone] Encounter Details Date Type Department Care Team (Late Contact Info) Description 07/13/2024 Telephone Internal Medicine - [place] [address] [facility] [address] [place] [phone] Antony Hassan MD 175 [facility] [address] [place] [address] Social History Tobacco Use Types Packs/Day Years [...] AM EDT Office Visit General Surgery - [place] [address] [facility] [address] [place] [address] Morgan Chance, [address] [facility] [address] [place] [address] documented as of this encounter Visit Diagnoses Not on filedocumented in this encounter Care Teams Care Clinician Relationship Specialty Start Date End Date Antony Hassan MD [address] [address] PCP - General 10/29/22 documented as of this encounter
--- OUTSIDE RECORDS SUMMARY | 2024-09-01 11:17 | XMS_ITS | Clinical Summary ---
Author Organization [facility] Address [address] [place] [address] Phone Care Team Providers Care Marketing Sales Representative Name Role Phone Antony Hassan MD Primary Care Provider [phone] Active Problems Problem Noted Date Diagnosed Date Hypo-osmolality and hyponatremia 11/16/2022 Encounters Date Type Department Care Team Description 08/19/2024 Documentation Only [facility] [address] [facility] [place] [phone] Margarita Rascon MA 08/19/2024 Documentation Only [facility] [address] [facility] [place] [phone] Margarita Rascon MA from Last 3 Months [...] 2018 Influenza Vaccine (#1) 2024 03/28/2020 Insurance [facility] Care Teams Marketing Sales Representative Relationship Specialty Start Date End Date Antony Hassan MD 175 [facility] 200 [place] [address] PCP - General Internal Medicine 10/04/22
--- OUTSIDE RECORDS SUMMARY | 2024-09-01 11:17 | XMS_ITS | Encounter Summary ---
Author Organization [facility], Address [address] [place] [address] Phone Care Team Providers Care Fiber Optics Technician Name Role Phone Antony Hassan MD Primary Care Provider [phone] Encounter Details Date Type Department Care Team (Late st Contact Info) Description 08/19/2024 Documentation Only [facility], [address] [place] [address] [place] [address] [place] [phone] Social History Tobacco Use Types Packs/Day Years [...] on filedocumented in this encounter Care Teams Fiber Optics Technician Relationship Specialty Start Date End Date Antony Hassan MD [address] [address] PCP - General Internal Medicine 10/04/22 documented as of this encounter
--- OUTSIDE RECORDS SUMMARY | 2024-09-01 11:17 | XMS_ITS | Encounter Summary ---
Author Organization [facility] Address [address] [place] [address] Care Team Providers Care Workers Compensation Claims Adjuster Name Role Phone Antony Hassan MD Primary Care Provider [phone] Reason for Visit * Reason Onset Date Comments Mo:Refill 07/08/2024 Encounter Details Date Type Department Care Team ([facility] st Contact Info) Description 07/08/2024 Telephone Internal Medicine - [place] [address] [facility] [address] [place] [phone] Antony Hassan MD [address] [facility] [address] [place] [address] Mo:Refill Social History Tobacco Use Types Packs/Day [...] Office Visit General Surgery - [place] 175 [facility] [address] [place] [address] Morgan Chance DO 175 [facility] [address] [place] [address] documented as of this encounter Visit Diagnoses [...] documented as of this encounter Care Teams Workers Compensation Claims Adjuster Relationship Specialty Start Date End Date Antony Hassan MD 175 [facility] [address] [place] [address] PCP - General 10/29/22 documented as of this encounter
--- OUTSIDE RECORDS SUMMARY | 2024-09-01 11:17 | XMS_ITS | Encounter Summary ---
Author Organization [facility], Address [address] [place] [address] Phone Care Team Providers Care Pediatric Ophthalmologist Name Role Phone Antony Hassan MD Primary Care Provider [phone] Encounter Details Date Type Department Care Team (Late st Contact Info) Description 08/19/2024 Documentation Only [facility], [address] [place] [address] [place] [address] [place] [phone] Social History Tobacco Use Types Packs/Day Years [...] on filedocumented in this encounter Care Teams Pediatric Ophthalmologist Relationship Specialty Start Date End Date Antony Hassan MD [address] [address] PCP - General Internal Medicine 10/04/22 documented as of this encounter
== END 2024-09-01 10:42 | disposition home or self-care (01) ==
PROVIDERS: PCP Internal Medicine; Visit Provider Internal Medicine Nephrology
DX: I10 Essential (primary) hypertension (principal)
CPT/HCPCS: 99214

== ENCOUNTER → 2024-09-01 09:50 | Outpatient (BNVA) | payer MEDICARE, MEDICAID, SELFPAY | PROVIDERS: PCP Internal Medicine; Visit Provider Internal Medicine Nephrology | DX: I10 Essential (primary) hypertension (principal); G47.33 Obstructive sleep apnea (adult) (pediatric); Z99.89 Dependence on other enabling machines and devices; Z79.899 Other long term (current) drug therapy | CPT/HCPCS: 93786; 93788; 99212 ==

== ENCOUNTER 2024-12-02 08:29 | Outpatient (REF) | payer MEDICARE, MEDICAID, SELFPAY ==
--- OUTSIDE RECORDS SUMMARY | 2024-12-02 08:45 | XMS_ITS | Clinical Summary ---
Author Organization [facility] Address [address] [place] [address] Care Team Providers Care Corner Former Name Role Phone Unknown Primary Care Provider [phone] Allergies No known active allergies Social History Tobacco Use Types Packs/Day Years Used Date Smoking Tobacco: Never Assessed Sex and Gender Information Value Date Recorded Sex Assigned at Not on file Legal Sex Male 12:56 PM EDT Gender Identity Not on file Sexual Orientation Not on file Last Filed Vital Signs Vital Sign Reading Time Taken Comments Blood Pressure 142/88 05/24/2018 9:51 AM EST Pulse 101 05/24/2018 9:51 AM EST Temperature 36.4 C (97.6 F) 05/24/2018 8:12 AM EST Respiratory Rate 18 05/24/2018 9:51 AM EST [...] (1 of 3 - 19+ 3-dose series) 10/1988 Colonoscopy 2014 Pneumococcal Vaccines 50+ (1 of 1 - PCV) 10/13/2019 Zoster (Shingles) Vaccine (1 of 2) 10/13/2019 COVID-19 Vaccine (1 - 2023- season) 2024 Influenza Vaccine 01/08/2025 Insurance [employer] HMO/POS Care Teams Corner Former Relationship Specialty Start Date End Date Unknown Unknow Provider Address PCP - General 05/24/18
[2024-12-02 18:24] LABS: Anion Gap 14 (12-20); Blood Urea Nitrogen 15 mg/dL (9-16); Calcium 9.6 mg/dL (8.4-10.2); Carbon Dioxide 26 mmol/L (22-29); Chloride 101 mmol/L (96-108); Estimated Glomerular Filt Rate > 60; Potassium 4.8 mmol/L (3.3-5.1); Sodium 136 mmol/L (135-145)
== END 2024-12-02 08:30 | disposition home or self-care (01) ==
LOC: HO.HKASLDS 08:29
PROVIDERS: Visit Provider Internal Medicine Nephrology
DX: I10 Essential (primary) hypertension (principal)
CPT/HCPCS: 36415; 80051; 82310; 82565; 84520

== ENCOUNTER 2024-12-03 09:53 | Outpatient (AMB) | payer MEDICARE, MEDICAID, SELFPAY ==
--- NOTE | 2024-12-03 09:58 | HO.NEPHOV_ITS ---
Vital Signs 12/03/24 09:59 Height 5 ft 5 in Weight 217 lb BMI 36.1 BP 130/80 Blood Pressure Location Lt brachial Position Sitting Pulse 88 Pulse Source Pulse Oximeter Pulse Oximetry (%) 97 Intake Visit Reasons: 3mo follow-up Intake Note: Patient here for a follow-up. [employer] Locomotive Required: No Accompanied by: Self / Same As Patient Allergies No Known Allergies Allergy (Verified 12/03/24 10:01) Do you need a note to return to daycare/school/sports/work: No HPI Comments Details: Alphonso is a 54 year old gentleman with H/O uncontrolled hypertension on multiple anti hypertensive medications. He has gained some weight and is not compliant with low sodium diet. He has MAN and has a CPAP but struggle to be compliant with it. He denies any LVH, proteinuria, retinopathy, renal dysfunction, hypokalemia, uncontrolled thyroid disorders, palpitations, CAD, CVA, CHF, carotid stenosis, PAD or STEFANIE. He takes NSAID's and claims to be compliant with his current medications. He has not taken his medications today . He denies headache, visual disturbance , weakness, chest pain, SOB or dizziness. He has no H/O drug use. He had no specific complaints at the time of this visit [facility] Medical History DDD (degenerative disc disease), lumbar Cervical spondylosis Hypertension Surgical History H/O hernia repair H/O right knee surgery S/P rotator cuff repair Family History Mother Hypertension Heart disease Father Hypertension Throat cancer Social History Alcohol intake: current Comment: Socially Patient Tobacco Use Status: Never used Tobacco Review of Systems Const All systems reviewed & are unremarkable except as noted in HPI and below Physical Exam Vital Signs: Last Vital Signs Pulse 88 12/03/24 09:59 BP 141/90 H 12/03/24 09:59 Pulse Ox 97 12/03/24 09:59 BMI result Body Mass Index 36.1 Const General: comfortable and no acute distress Orientation/consciousness: patient oriented x3 HEENT Head: Yes normocephalic Mouth: Normal oral and palatal mucosa present Eyes EOM: EOMs intact bilaterally Neck Neck: Yes supple Resp Auscultation: clear to auscultation bilaterally Cardio Jugular venous distension: no JVD Rate: regular rate GI Palpation (GI): Soft to palpation Auscultation: normal bowel sounds General: Yes no CVA tenderness Back/Spine/Pelvis Back: no CVA tenderness Skin General skin exam: no rashes or lesions noted Neuro General: patient oriented x3 and moves all extremities Extrem General: Yes no pedal edema Results Reviewed Nephrology Results: Sodium, (135-145) 136 mmol/L 12/02/24 Potassium, (3.3-5.1) 4.8 mmol/L Δ 12/02/24 Chloride, (96-108) 101 mmol/L 12/02/24 Carbon Dioxide, (22-29) 26 mmol/L 12/02/24 BUN, (9-16) 15 mg/dL 12/02/24 Creatinine, (0.5-1.4) 1.07 mg/dL 12/02/24 Calcium, (8.4-10.2) 9.6 mg/dL 12/02/24 Urine Creatinine 206.30 mg/dL 08/04/24 Protein/Creatinin Ratio, (<0.2) 0.23 H 08/04/24 Renal US 08/21/24 Assessment & Plan Assessment & Plan (1) Hypertension: Code(s): I10 - Essential (primary) hypertension Category: Medical Qualifiers: Hypertension type: primary hypertension Qualified Code(s): I10 - Essential (primary) hypertension Plan Low sodium diet; Weight loss Needs to be compliant with CPAP Work up including imaging reviewed C/W current medications for now Avoid/Minimize NSAID's Good hydration; 24 hour BPM results reviewed Answered all questions; F/U given Coding Level of Care Code Est Pt Level 4 (92742) Diagnoses Primary hypertension I10 Hypertension type: primary hypertension
[2024-12-03 09:59] VITALS: BP 130/80; PULSE 88; O2SAT 97; BMI 36.1
--- OUTSIDE RECORDS SUMMARY | 2024-12-03 11:17 | XMS_ITS | Clinical Summary ---
Author Organization [facility] Address [address] [place] [address] Care Team Providers Care Rewinder Operator Name Role Phone Unknown Primary Care Provider [phone] Allergies No known active allergies Social History [...] Vaccine 01/08/2025 Insurance [employer] HMO/POS Care Teams Rewinder Operator Relationship Specialty Start Date End Date Unknown Unknow Provider Address PCP - General 05/24/18
== END 2024-12-03 10:27 | disposition home or self-care (01) ==
LOC: HO.HKAS 09:54
PROVIDERS: PCP Internal Medicine; Visit Provider Internal Medicine Nephrology
DX: I10 Essential (primary) hypertension (principal)
CPT/HCPCS: 99214

== ENCOUNTER → 2024-12-03 09:53 | Outpatient (BNVA) | payer MEDICARE, MEDICAID, SELFPAY | PROVIDERS: PCP Internal Medicine; Visit Provider Internal Medicine Nephrology | DX: I10 Essential (primary) hypertension (principal) | CPT/HCPCS: 99212 ==

== ENCOUNTER 2025-05-27 10:32 | Outpatient (AMB) | payer MEDICARE, MEDICAID, SELFPAY ==
--- NOTE | 2025-05-27 10:37 | HO.NEPHOV ---
Vital Signs 05/27/25 10:38 Height 5 ft 5 in Weight 215 lb BMI 35.8 BP 140/90 H Blood Pressure Location Lt brachial Position Sitting Pulse 80 Pulse Source Pulse Oximeter Pulse Oximetry (%) 97 Oxygen Delivery Method Room Air Intake Visit Reasons: 6 mnts f/u-Conf Oracle Adf Consultant Required: No Accompanied by: Self / Same As Patient Allergies No Known Allergies Allergy (Verified 05/27/25 10:38) HPI Comments Details: Alphonso is a 54 year old gentleman with H/O uncontrolled hypertension on multiple anti hypertensive medications. He has MAN and has a CPAP but struggle to be compliant with it. He denies any LVH, proteinuria, retinopathy, renal dysfunction, hypokalemia, uncontrolled thyroid disorders, palpitations, CAD, CVA, CHF, carotid stenosis, PAD or STEFANIE. He takes NSAID's and claims to be compliant with his current medications. He has not taken his medications today . He denies headache, visual disturbance , weakness, chest pain, SOB or dizziness. He had no specific complaints at the time of this visit [facility] Medical History DDD (degenerative disc disease), lumbar Cervical spondylosis Hypertension Surgical History H/O hernia repair H/O right knee surgery S/P rotator cuff repair Family History Mother Hypertension Heart disease Father Hypertension Throat cancer Social History Alcohol intake: current Comment: Socially Patient Tobacco Use Status: Never used Tobacco Review of Systems Const All systems reviewed & are unremarkable except as noted in HPI and below Physical Exam Vital Signs: Last Vital Signs Pulse 80 05/27/25 10:38 BP 140/90 H 05/27/25 10:38 Pulse Ox 97 05/27/25 10:38 Oxygen Delivery Method Room Air 05/27/25 10:38 BMI result Body Mass Index 35.8 Const General: comfortable and no acute distress Orientation/consciousness: patient oriented x3 HEENT Head: Yes normocephalic Mouth: Normal oral and palatal mucosa present Eyes EOM: EOMs intact bilaterally Neck Neck: Yes supple Resp Auscultation: clear to auscultation bilaterally Cardio Jugular venous distension: no JVD Rate: regular rate GI Palpation (GI): Soft to palpation Auscultation: normal bowel sounds General: Yes no CVA tenderness Back/Spine/Pelvis Back: no CVA tenderness Skin General skin exam: no rashes or lesions noted Neuro General: patient oriented x3 and moves all extremities Extrem General: Yes no pedal edema Results Reviewed Nephrology Results: Sodium, (135-145) 136 mmol/L 12/02/24 Potassium, (3.3-5.1) 4.8 mmol/L Δ 12/02/24 Chloride, (96-108) 101 mmol/L 12/02/24 Carbon Dioxide, (22-29) 26 mmol/L 12/02/24 BUN, (9-16) 15 mg/dL 12/02/24 Creatinine, (0.5-1.4) 1.07 mg/dL 12/02/24 Calcium, (8.4-10.2) 9.6 mg/dL 12/02/24 Urine Creatinine 206.30 mg/dL 08/04/24 Protein/Creatinin Ratio, (<0.2) 0.23 H 08/04/24 Renal US 08/21/24 Assessment & Plan Assessment & Plan (1) Hypertension: Code(s): I10 - Essential (primary) hypertension Category: Medical Qualifiers: Hypertension type: primary hypertension Qualified Code(s): I10 - Essential (primary) hypertension Plan Low sodium diet; Weight loss Needs to be compliant with CPAP Work up including imaging reviewed C/W current medications for now Avoid/Minimize NSAID's Good hydration; F/U labs ordered Answered all questions; F/U given Orders: Orders Creatinine 6 Months I10 - Essential (primary) hypertension Blood Urea Nitrogen 6 Months I10 - Essential (primary) hypertension Electrolytes 6 Months I10 - Essential (primary) hypertension Protein Creatinine Ratio, Ur 6 Months I10 - Essential (primary) hypertension Medications: Discontinued potassium chloride ER Discontinued Reason: Patient Completed Course 20 mEq PO DAILY 7 tabs 0RF Coding Level of Care Code Est Pt Level 4 (35509) Diagnoses Primary hypertension I10 Hypertension type: primary hypertension
[2025-05-27 10:38] VITALS: BP 140/90; PULSE 80; O2SAT 97; BMI 35.8
--- OUTSIDE RECORDS SUMMARY | 2025-05-27 13:16 | XMS_ITS | Clinical Summary ---
Author Organization [facility] Address [address] [place] [id number] Care Team Providers Care Restrooms Or Lounges Maid Name Role Phone Unknown Primary Care Provider [phone] Allergies No known active allergies Social History [...] Vaccine (1 of 2) 10/13/2019 Influenza Vaccine 01/08/2025 COVID-19 Vaccine (1 - 2024- season) 2025 RSV Vaccine 50 years and old er and Patients (1 - 1-dose 75+ series) 2044 Insurance [employer] HMO/POS Care Teams Restrooms Or Lounges Maid Relationship Specialty Start Date End Date Unknown Unknow Provider Address PCP - General 05/24/18
--- OUTSIDE RECORDS SUMMARY | 2025-05-27 13:16 | XMS_ITS ---
Author Name [facility] Organization Unknown Care Team Organization Name Specialty Phone Email Start Date End Da te [facility] LILIA ORTIZ Primary Care 03/13/2023 01/27/20 [facility] Myra Nelson Primary Care 10/15/2022 [facility] Kelle Garrett Primary Care 04/17/2022 [facility], TAMIKO ANNE Primary Care 02/24/2021 01/27/2024
--- OUTSIDE RECORDS SUMMARY | 2025-05-27 13:16 | XMS_ITS | Clinical Summary ---
Author Organization [facility], Address [address] [place] [address] [place] [address] Phone Care Team Providers Care Forge Tender Name Role Phone Antony Hassan MD Primary Care Provider [phone] Active Problems Problem Noted Date Diagnosed Date [...] Due Date Last Done Comments Hepatitis B Vaccine (1 of 3 - 19+ 3-dose series) 10/12 Pneumococcal Vaccine: 50+ Years (1 of 2 - PCV) 989 Colorectal Cancer Screening: Annual FOBT 2018 Colorectal Cancer Screening: Colonoscopy 2018 Colorectal Cancer Screening: Sigmoidoscopy 2018 Influenza Vaccine (#1) 2025 03/28/2020 Insurance [facility] [employer] Care Teams Forge Tender Relationship Specialty Start Date End Date Antony Hassan MD [address] [address] PCP - General Internal Medicine 10/04/22
--- OUTSIDE RECORDS SUMMARY | 2025-05-27 13:16 | XMS_ITS | Encounter Summary ---
Author Organization [facility], Address [address] [place] [address] Phone Care Team Providers Care Scene And Lighting Design Lecturer Name Role Phone Antony Hassan MD Primary Care Provider Encounter Details Date Type Department Care Team (Late st Contact Info) Description 08/19/2024 Documentation Only [facility], [address] [place] [address] [place], [place] [address] [place] [phone] Social History Tobacco Use Types Packs/Day Years [...] on filedocumented in this encounter Care Teams Scene And Lighting Design Lecturer Relationship Specialty Start Date End Date Antony Hassan MD [address] [address] PCP - General Internal Medicine 10/04/22 documented as of this encounter
--- OUTSIDE RECORDS SUMMARY | 2025-05-27 13:16 | XMS_ITS | Clinical Summary ---
Author Organization [facility] Address [address] [place] [address] Care Team Providers Care Supervisor Cigar Making Machine Name Role Phone Alverto Astudillo MD Primary Care Provider [phone] Alverto Astudillo MD Unavailable [phone] Medications Escitalopram Oxalate (LEXAPRO) 10 MG tablet [...] (Shingrix) (1 of 2) 10/13/2019 COVID-19 Vaccine (2024-2 6 season) 2025 Influenza (#1) 2025 RSV (1 - 1-dose 75+ series) 2044 HPV Vaccine (No Doses Required) Completed Hep A Aged Out No longer eligi ble based on patient's age to complete this topic Hib Aged Out No longer eligi ble based on patient's age to complete this topic Meningococcal ACWY Aged Out No longer eligible based on patient's age to complete this topic Care Teams Supervisor Cigar Making Machine Relationship Specialty Start Date End Date Alverto Astudillo MD [address] [place] [address] [address] [place] [address] PCP - General 01/14/23 Alverto Astudillo MD [address] [place] [address] [address] [place] [address] PCP - Backup PCP Internal Medicine 07/11/23
--- OUTSIDE RECORDS SUMMARY | 2025-05-27 13:16 | XMS_ITS | Clinical Summary ---
Author Organization [address] [facility] Address [address] [place] [address] Phone Care Team Providers Care Battery Engineer Name Role Phone Antony Hassan MD Primary Care Provider [phone] Allergies No known active allergies Medications oxyCODONE [...] meals). Active amLODIPine (NORVASC) 5 mg tablet TAKE 1 TABLET BY MOUTH 1 TIME EACH DAY. 90 tablet 1 2024 Active losartan (COZAAR) 100 mg tablet TAKE 1 TABLET BY MOUTH 1 TIME EACH DAY. 90 tablet 1 2024 Active nebivoloL (BYSTOLIC) 5 mg tablet TAKE 1 TABLET BY MOUTH 1 TIME EACH DAY. 90 tablet 1 01/13/2025 Active Active Problems Problem Noted Date Diagnosed [...] concerns, all questions answered on today's visit. Immunizations Immunization Administration Dates Next Due Pfizer SARS-CoV-2 COVID-19, [...] Sign Reading Time Taken Comments Blood Pressure 143/85 10/13/2024 8:25 AM EDT Pulse 87 10/13/2024 8:25 AM EDT Temperature 36.8 C (98.3 F) 07/16/2024 3:05 PM EST Respiratory Rate - - Oxygen Saturation 97% 07/16/2024 3:05 PM EST Inhaled Oxygen Concentration - - Weight 99.4 kg (219 lb 3.2 oz) 10/13/2024 8:25 A M EDT Height 165.1 cm (5' 5 ) 10/13/2024 8:25 AM EDT Body Mass Index 36.48 10/13/2024 8:25 AM EDT Plan of Treatment Health Maintenance Due Date Last Done Comments Hepatitis B Vaccines (1 of 3 - 19+ 3-dose series) 1988 Pneumococcal Vaccine: 50+ Years (1 of 1 - PCV) 10/13/2019 HIV Screening 05/16/2022 Hepatitis C Screening 05/16/2022 Medicare Annual Wellness Visit 05/16/2022 Social Influencers of Health Screening 05/16/2022 Depression Screening 06/10/2024 12/06/2023 Hypertension/CHF/CAD Annual BMP Blood Test 12/30/2024 12/31/2023, 12/31/2023, 01/19/2020, Additional history exists COVID-19 Vaccine ( - season) 2025 05/20/2021, 10/03/2020, 09/10/2020 Influenza Vaccine (#1) 2025 03/28/2020 DTaP,Tdap,and Td Vaccines (2 - Td or Tdap) 09/04/2027 09/03/2017 Cholesterol Screening (Lipid Panel) 12/30/2028 12/31/2023, 12/31/2023, 01/19/2020, Additional history exists Colorectal Cancer Screening: Colonoscopy 04/06/2030 04/06/2020 RSV Immunization Adult Patients (1 - 1-dose 75+ series) 2044 Zoster Vaccines Completed 03/28/2020, 01/27/2020 HIB Vaccines [...] age to complete this topic Meningococcal B Vaccine Aged Out No l onger eligible based on patient's age to complete [...] Results * Annual BMP Blood Test (12/31/2023) [facility] Annual BMP Blood Test abstracted [facility] Provider HEALTH MAINTENANCE Final Result * (ABNORMAL) Lipid panel (12/31/2023) [facility] LDL/HDL Ratio 3 0 - 4 Triglycerides 67 0 - 150 mg/dL Cholesterol 230(A) 0 - 200 mg/dL HDL 78 >=40 mg/dL LDL Cholesterol 139(A) 0 - 100 mg/dL Blood Venous blood specimen / Unknown Historical Provider LAB BLOOD ORDERABLES Ofelia l Result * Depression Screening (12/06/2023) [facility] Depression Screening abstracted Historical Provider HEALTH MAINTENANCE Final Result * COLONOSCOPY (04/06/2020 10:54 AM EDT) Anatomical Region Laterality Modality Endoscopy Jareth Gomez DO GI~PROCEDURE ORDERABLES Ofelia l Result from Last 3 Months or Most Recently Relevant to Health Maintenance Insurance MEDICARE MEDICAID - [place] Care Teams Battery Engineer Relationship Specialty Start Date End Date Antony Hassan MD 175 [facility] [address] [place] [address] PCP - General 10/29/22
--- OUTSIDE RECORDS SUMMARY | 2025-05-27 13:16 | XMS_ITS | Encounter Summary ---
Author Organization [facility], Address [address] [place] [address] Phone Care Team Providers Care Grade School Teacher Name Role Phone Antony Hassan MD Primary Care Provider [phone] Encounter Details Date Type Department Care Team (Late st Contact Info) Description 10/04/2022 Documentation Only [facility], [address] [facility] [place] [address] Antony Hassan MD [address] [place] [id number] Social History Tobacco Use Types Packs/Day Years [...] on filedocumented in this encounter Care Teams Grade School Teacher Relationship Specialty Start Date End Date Antony Hassan MD [address] [facility] [address] [place] [address] PCP - General Internal Medicine 10/04/22 documented as of this encounter
--- OUTSIDE RECORDS SUMMARY | 2025-05-27 13:16 | XMS_ITS | Encounter Summary ---
Author Organization [facility], Address [address] [place] [address] Phone Care Team Providers Care Parts Identifier Name Role Phone Antony Hassan MD Primary Care Provider Encounter Details Date Type Department Care Team (Late st Contact Info) Description 08/19/2024 Documentation Only [facility], [address] [place] [address] [place] [address] [place] [phone] Social History Tobacco Use Types Packs/Day Years [...] on filedocumented in this encounter Care Teams Parts Identifier Relationship Specialty Start Date End Date Antony Hassan MD [address] [address] PCP - General Internal Medicine 10/04/22 documented as of this encounter
--- OUTSIDE RECORDS SUMMARY | 2025-05-27 13:16 | XMS_ITS | Clinical Summary ---
[facility] Organization [facility] Prior [facility] [place] [address] Care Team Providers Care Mule Packer Name Role Phone Blair Baez MD Primary [...] 107 03/17/2021 3:45 PM EDT Temperature 36.2 C (97.2 F) 02/22/2021 11:33 AM EDT Respiratory Rate 20 03/17/2021 3:45 PM EDT [...] 12/18/2018, Additional history exists Influenza Vaccine (#1) 2025 03/28/2020 DTap / Tdap / Td (2 - Td or Tdap) 09/04/2027 09/03/2017 Hepatitis C Screening Completed 01/19/2020, 018 Shingrix-Zoster Vaccine Completed 03/28/2020, 01/26 RSV Ped < 20 months Aged Out No longe r eligible based on patient's age to complete this topic Care Teams Mule Packer Relationship Specialty Start Date End Date Blair Baez MD PCP - General Family Medicine 09/03/17
== END 2025-05-27 10:56 | disposition home or self-care (01) ==
LOC: HO.HKAS 10:32
PROVIDERS: PCP Internal Medicine; Visit Provider Internal Medicine Nephrology
DX: I10 Essential (primary) hypertension (principal)
CPT/HCPCS: 99214

== ENCOUNTER → 2025-05-27 10:32 | Outpatient (BNVA) | payer MEDICARE, MEDICAID, SELFPAY | PROVIDERS: PCP Internal Medicine; Visit Provider Internal Medicine Nephrology | DX: I10 Essential (primary) hypertension (principal); G47.33 Obstructive sleep apnea (adult) (pediatric); Z99.89 Dependence on other enabling machines and devices | CPT/HCPCS: 99212 ==